=== PATIENT | female | born 1955 | race Caucasian/White ===

== ENCOUNTER 2023-10-17 11:40 | Inpatient (IN) | payer MEDICARE, OTHER, SELFPAY ==
--- NOTE | 2023-10-17 11:53 | HPS.HSE ---
Family Physician
-
Family Physician: Thais Smith
Chief Complaint
-
n/a
History of Present Illness
Beatrice Marx is a 68-year-old hdlob-cpdu-kzizwbqo female with chronic rheumatoid arthritis on methotrexate and in usual state of health, was initially admitted to [facility] on 10/14/2023 for complaint of chest pressure, shortness
of breath and dizzinesswhile driving. She pulled into a [facility] pharmacy and was given 4 baby aspirin's and EMS was notified. She ruled in for non-STEMI at [facility]. TTE reported ejection fraction of 57%. Cardiac cath via right radial
artery on 10/17/2023 reported high-grade LAD and circumflex disease, with 60% RCA stenosis. Patient was transferred to [facility] for surgical evaluation for CABG. Patient is currently pain-free and sitting upright in bed, conversing with
staff.
Cardiac Cath (R radial by Dr Kleber Alvarado @ [facility] 10/17/23):
60% distal left main involving the ostial LAD and LCx.
90% ostial LAD
50% calcific ostial and 80% proximal LCx
60% proximal RCA (dominant)
TTE 10/16/23:
LVEF 55%. Cannot R/O RA mass/thrombus. No , tr AI. Mod MS (mean gradient 3mmHg). Mild TR. Asc Aorta 3.37cm. Aneurysm of intraventricualr septum with PFO.
Medical History
Past Medical History
Past Medical History: Reports Other (Rheumatoid arthritis, HTN, HLD, migraine cephalgia, basal cell cancer of forehead, right shoulder dislocation, obesity)
Past Surgical History: Reports Other (Repair and pinning of right shoulder dislocation, removal of basal cell cancer from forehead)
Social History
Tobacco: Non-smoker
Alcohol: None
Drug: None
Personal:
Living: With Family
Family History
Family History: Adopted
Allergies / Home Medications
Allergies reflects when Allergies were last updated in [facility].
Home Medications with original date entered in [facility]
Allergy/Medication List:
Home Medications
�Medication �Instructions �Recorded
B.coagulans,subtilis 1 billion tab PO 10/17/23
cell-C 45 mg-D3 25 mcg-zinc chew
tablet (Probiotic-Immune)
B6 1.7 mg-folic 400 mcg-B12 2.4 cap PO DAILY 10/17/23
rnt-yhhuvu-anbjnwrmdipi oral
capsule (Neuriva Plus Brain
Performance)
acetaminophen 300 mg-codeine 15 mg 1 tab PO BID PRN pain 10/17/23
tablet
aspirin 81 mg tablet 81 mg PO DAILY 10/17/23
calcium carbonate 600 mg PO BID 10/17/23
cranberry fruit 450 mg tablet 450 mg PO DAILY 10/17/23
(cranberry)
elderberry fruit 200 mg capsule mg PO DAILY 10/17/23
escitalopram oxalate 10 mg PO DAILY 10/17/23
escitalopram oxalate 20 mg tablet 20 mg PO DAILY 10/17/23
fexofenadine 60 mg-pseudoephedrine 1 tab PO Q12H PRN allergy 10/17/23
ER 120 mg tablet,ext.release,12 hr
(Joaquina-D 12 Hour)
furosemide 20 mg tablet (Lasix) 20 mg PO DAILY 10/17/23
golimumab 12.5 mg/mL intravenous 50 mg IV Q8W 10/17/23
solution (Simponi ARIA)
lisinopril 5 mg tablet 5 mg PO DAILY 10/17/23
magnesium aspart,citrate,oxide 400 mg PO DAILY 10/17/23
methotrexate sodium 2.5 mg tablets 2.5 mg PO QWEEK 10/17/23
in a dose pack
montelukast 10 mg tablet 10 mg PO DAILY 10/17/23
(Singulair)
multivitamin 1 tab PO DAILY 10/17/23
nabumetone 500 mg tablet 500 mg PO BID 10/17/23
omega-3 fatty acids 1,000 mg PO DAILY 10/17/23
oxycodone-acetaminophen 5 mg-325 1 tab PO Q6H PRN pain 10/17/23
mg tablet (Percocet)
pravastatin 80 mg tablet 80 mg PO DAILY 10/17/23
topiramate 25 mg tablet 25 mg PO BID 10/17/23
zolpidem 12.5 mg tablet,extended mg PO PRN PRN sleep 10/17/23
release,multiphase
Review of Systems
-
History Source: Patient
A 12 point ROS was completed and negative except as noted: Yes
Constitutional: Reports No Symptoms
EENT: Reports No Symptoms
Respiratory: Reports No Symptoms
Cardiac: Reports See HPI
: Reports No Symptoms
Musculoskeletal: Reports See HPI
Skin: Reports Rash (B/L toes )
Neurological: Reports No Symptoms
Endocrine: Reports No Symptoms
Hematologic/Lymphatic: Reports No Symptoms
Psych: Reports No Symptoms
Physical Exam
Vital Signs
Vital Signs
Temp Pulse Resp Pulse Ox
97.9 F 65 15 97
10/17/23 11:48 10/17/23 11:48 10/17/23 11:48 10/17/23 11:48
Physical Exam
General: Well Developed, Well Nourished, Conversant and Obese
HEENT: NormoCephalic, Anicteric, Moist mucous membranes, PERRLA and Neck Nontender
Respiratory: Clear and Non Labored Respirations
Cardiac: S1/S2 and Regular Rhythm
Breast: Deferred by me
GI: Soft, Non Tender, Normal Bowel Sounds and No Hepatosplenomegaly
Rectal: Deferred by Provider
Genito-urinary: Deferred by me
Musculoskeletal: No Clubbing, No Cyanosis and No Edema
Skin: Warm, Dry and Rash (chronic B/L toes)
Neuro: Awake, AO x 3, No Motor Deficits and Cranial Nerves Intact
Hematologic/Lymphatic: No Lymphadenopathy
Psych: Calm and Intact Judgment/Insight
Laboratory Results
-
A1c 5.7%
Data Reviewed
-
Medical Tests (Nuc Med, Echo, EKG etc): Report Reviewed by me, Discussed with Physician and Discussed with Nurse
Lab Data: Labs Reviewed by me, Discussed with Physician and Discussed with Nurse
Impression/Plan
-
IMPRESSION:
68-year-old female admitted with non-STEMI and left main/triple-vessel coronary disease with preserved ejection fraction, PFO
PLAN:
- Dr. Tinoco reviewed echo and cath images and spoke to patient/family re: CABG risk/benefit
- pre-op blood work, carotid US, non-contrast CT chest, T&S, CXR ordered
- A1C 5.7%>will need carb controlled cholesterol lowering diet
- last dose Methotrexate 10/15
- consent signed
- scheduled for CABG 10/17
--- NOTE | 2023-10-17 12:44 | CON.INTV ---
Consultation
Consultation Request
Date/Time Consultation Requested: 10/17/2023 - 1214
Date/Time Consultation Performed: 10/17/2023 - 1400
Requesting Provider: Bella ALFARO
Performing Provider: Dr. East
Reason for Consultation: NSTEMI, pre-op optimization for CABG
Medical History
-
Chief Complaint: SOB
History of Present Illness:
68-year-old female known tobacco smoker with a wood stove at home who presents with SOB, chest pressure and dizziness while driving. She was at the library and left when her symptoms developed, and went to a [facility] pharmacy that she gets her
medications filled at and notified the staff there her symptoms. Due to concern for a heart attack, 4 baby aspirin's were administered and EMS was notified who brought her to [facility]. Reportedly, echo showed EF of 57%. Cardiac cath done on 10/09/2023
showed high-grade LAD and circumflex disease with RCA disease as well (60%), she was transferred here [facility] for surgical evaluation for CABG. Cardiothoracic surgery was consulted who believes patient would benefit from surgical coronary
revascularization. She is tentatively scheduled for surgery tomorrow. Pulmonary/critical care services consulted for further recommendations/preoperative management.
When I saw the patient she was doing well, sitting in chair on room air breathing comfortably. She says that the shortness of breath she felt prior to going [facility] she had never felt that before. She says she also felt neck pain as well as a
headache. She is a very active female, is independent with all her ADLs and IADLs. She is currently saturating 100% on room air, heart rate 70 and BP 113/78. She denies chest pain currently, denies neck pain, headache, fevers or chills.
PMHx: Rheumatoid arthritis, HTN, HLD, migraine cephalgia, basal cell cancer of forehead, right shoulder dislocation, obesity
PSHx: Repair and pinning of right shoulder dislocation, removal of basal cell cancer from forehead
Past Medical History
Past Medical History: Other (Above as per HPI)
Past Surgical History: Other (Above as per HPI)
Social History
Tobacco: Non-smoker
Alcohol: None
Drug: None
Personal:
Living: With Family
Family History
Family History: Adopted
Allergies / Home Medications
Allergies
Allergy/AdvReac Type Severity Reaction Status Date / Time
sulfamethoxazole Allergy Mild Hives Verified 10/17/23 12:26
[From
Sulfamethoxazole-Trimethoprim]
trimethoprim Allergy Mild Hives Verified 10/17/23 12:26
[From
Sulfamethoxazole-Trimethoprim]
clarithromycin AdvReac Mild diarrhea Verified 10/17/23 12:26
Bactrim Allergy Intermediate Hives Uncoded 10/17/23 12:26
Review of Systems
-
History Source: Patient
All other systems: Negative unless noted
Vitals / Labs / Diagnostic Testing
Vital Signs
Temp Pulse Resp Pulse Ox
97.9 F 62 15 97
10/17/23 11:48 10/17/23 11:56 10/17/23 11:48 10/17/23 12:07
Diagnostic Testing:
Physical Exam
-
HEENT: Normocephalic and Anicteric
Cardiovascular: S1/S2 and Peripheral Edema (Negative)
Respiratory: Clear, Wheeze (Negative), Rales (Negative), Rhonchi (Negative) and Non-Labored Respirations
GI: Soft, Non Distended and Non Tender
Neurology: AO x 3 and Tremors (Negative)
Skin: Warm and Dry
General: Comfortable, Fever (Negative) and Chills (Negative)
Assessment
-
Assessment: 68-year-old female known tobacco smoker with a wood stove at home who presents with SOB, chest pressure and dizziness while driving. She was at the library and left when her symptoms developed, and went to a [facility] pharmacy that she gets
her medications filled at and notified the staff there her symptoms. Due to concern for a heart attack, 4 baby aspirin's were administered and EMS was notified who brought her to [facility]. Reportedly, echo showed EF of 57%. Cardiac cath done on
10/09/2023 showed high-grade LAD and circumflex disease with RCA disease as well (60%), she was transferred here [facility] for surgical evaluation for CABG. Cardiothoracic surgery was consulted who believes patient would benefit from surgical
coronary revascularization. She is tentatively scheduled for surgery tomorrow. Pulmonary/critical care services consulted for further recommendations/preoperative management.
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
Impression:
#Multivessel CAD with acute NSTEMI diagnosed at outside hospital ([facility]) now awaiting CABG
#Wood stove exposure at home
#History of RA
#Obesity (BMI: 36.6)
#Mild medial LLL and RLL bronchiectasis
Plan:
Patient awaiting CABG which will happen tomorrow
Keep n.p.o. past midnight
Maintain MAP >65
Replete K >4, Mg>2
prn nebulized bronchodilators
Monitor hemoglobin & transfuse to keep Hb>7g/dL
Monitor blood sugar with goal BG 140-180
Incentive spirometer encouraged
DVT prophylaxis
Total time spent today was 75 minutes for this encounter. Time includes reviewing laboratory test/imaging results, reviewing pertinent medical records, obtaining and reviewing medical history, performing an appropriate exam, ordering medications,
tests and procedures. Time also includes documentation of this encounter, coordinating patient care and communicating with other healthcare professionals. Total time does not include separately billed tests performed on this date of service.
Data:
CT Chest 10-17-2023:
1. No acute pulmonary process. Mild changes of pulmonary scarring as above with small area of cylindrical bronchiectatic change in the paramediastinal right lower lobe.
2. Coronary and aortic atherosclerosis with severe coronary artery calcification. At least moderate aortic valve calcification.
CXR 10-17-2023: Hypoaerated lungs without consolidation.
[2023-10-17 12:52] LABS: % Basophils 1.6 % (0-2); % Eosinophils 7.8 % (0-6); % Immature Granulocytes 0.2 % (0-0.5); % Lymphocytes 25.3 % (20.5-51.1); % Monocytes 10.9 % (1.7-9.3); % Neutrophils 54.2 % (42.2-75.2); Absolute Basophils 0.1 10^3/uL (0-0.2); Absolute Eosinophils 0.5 10^3/uL (0-0.7); Absolute Lymphocytes 1.5 10^3/uL (1.2-3.4); Absolute Monocytes 0.6 10^3/uL (0.1-0.6); Absolute Neutrophils 3.1 10^3/uL (1.4-6.5); Hematocrit 43.9 % (37.0-47.0); Mean Corp Hgb Conc. 34.2 g/dL (33.0-37.0); Mean Corpuscular Hgb 30.1 pg (27.0-31.0); Nucleated Red Blood Cells % 0 %; Red Blood Cell Count 4.99 10^6/uL (4.20-5.40); Red Cell Dist. Width 15.9 % (11.5-14.5); White Blood Cell Count 5.8 10^3/uL (4.8-10.8)
[2023-10-17 13:04] LABS: INR 1.01; PT 13.1 Sec (11.4-14.6)
[2023-10-17 13:06] LABS: APTT 47.6 Sec (23.4-35.0)
[2023-10-17 13:11] LABS: Glycohemoglobin (HgbA1c) 5.7 % (4.0-5.6)
[2023-10-17 13:39] LABS: Urine Albumin Trace (Neg - Trace); Urine Bilirubin 1+ (Negative); Urine Character Clear (Clear); Urine Color Yellow; Urine Glucose Negative (Negative); Urine Ketone Negative (Negative); Urine Leukocyte Trace (Negative); Urine Nitrite Negative (Negative); Urine Occult Blood Negative (Negative); Urine Specific Gravity 1.015 (<1.030); Urine Urobilinogen Negative (Neg - 1+)
[2023-10-17 13:48] LABS: Urine Bacteria Few (Negative); Urine Red Blood Cell 0-2 /HPF (0-2); Urine Squamous Cell >30 /LPF (Few); Urine White Cell 0-2 /HPF (0-5)
--- NOTE | 2023-10-17 13:58 | CON.CAR ---
Addendum entered and electronically signed by Rufus Shine MD 10/17/23 16:24:
Attending addendum: Patient seen and examined. I have reviewed the compilation of records from [facility] and have personally reviewed coronary angiography performed at [facility]. Briefly, this is a 68-year-old female with a
past medical history notable for rheumatoid, hypertension, and hyperlipidemia. She presented to [facility] with a generalized sense of feeling unwell with shortness of breath and dizziness. Her troponin high-sensitivity was very mildly
elevated and she was referred for coronary angiography revealing multivessel coronary artery disease. She is now received in transfer and is chest pain free
Physical Exam:
GEN: AAO x 3. No acute distress
HEENT: NC/AT, sclera are anicteric, hearing and nares are normal.
LUNGS: Crackles at bases that largely clear with cough and inspiration.
CV: Regular rate and rhythm. Normal S1/S2. No S3, No S4. Murmur: None
ABD : Soft, NT, ND, No HSM. Bowel sounds are present.
EXT: No CCE. Good distal pulses
NEURO: No focal neurologic deficits
RECOMMENDATIONS:
-IV heparin
-CT surgical evaluation
-Continue aspirin
-Limited percutaneous treatment options.
-Consider IABP if she becomes unstable with recurring symptoms
Original Note:
Consultation
Consultation Request
Date/Time Consultation Requested: 10/17/23
Date/Time Consultation Performed: 10/17/23
Requesting Provider: CT surgery service
Performing Provider: Dr. Shine
Reason for Consultation: Hospital to hospital transfer fro multivessel CAD
Medical History
-
History of Present Illness:
Patient came to from [facility] with multivessel CAD on 10/17/23 and cardiology has been consulted. Patient started with chest pain when she was at the library on Monday when she started with chest pressure. Chest pressure was worse while driving home
and she started to feel SOB and dizzy. She called 911 and was brought to [facility] ER. In [facility] ER patient was hypertensive. Patient was admitted and started on Heparin gtt. Patient was treated for HTN throughout the weekend and then had cardiac cath this
morning at [facility] where she was found to have multivessel CAD and was transferred to for CT surgical evaluation. No chest pain since admission to [facility].
PMH:
RA
HTN
Hyperlipidemia
Past Medical History
Past Medical History: Other (in HPI)
Past Surgical History: Cardiac (cath 10/17/23)
Social History
Tobacco: Non-Smoker
Alcohol: None
Drug: None
Personal:
Living: With Family
Family History
Family History: Diabetes
Allergies / Home Medications
Allergy/AdvReac Type Severity Reaction Status Date / Time
sulfamethoxazole Allergy Mild Hives Verified 10/17/23 12:26
[From
Sulfamethoxazole-Trimethoprim]
trimethoprim Allergy Mild Hives Verified 10/17/23 12:26
[From
Sulfamethoxazole-Trimethoprim]
clarithromycin AdvReac Mild diarrhea Verified 10/17/23 12:26
�Medication �Instructions �Recorded �Confirmed �Type
B.coagulans,subtilis 1 billion tab PO 10/17/23 History
cell-C 45 mg-D3 25 mcg-zinc chew
tablet (Probiotic-Immune)
B6 1.7 mg-folic 400 mcg-B12 2.4 cap PO DAILY 10/17/23 History
uwr-kndzqa-tbhauvkvhmbo oral
capsule (Neuriva Plus Brain
Performance)
acetaminophen 300 mg-codeine 15 mg 1 tab PO BID PRN pain 10/17/23 10/17/23 History
tablet
aspirin 81 mg tablet 81 mg PO DAILY 10/17/23 10/17/23 History
calcium carbonate 600 mg PO BID 10/17/23 10/17/23 History
cranberry fruit 450 mg tablet 450 mg PO DAILY 10/17/23 10/17/23 History
(cranberry)
elderberry fruit 200 mg capsule mg PO DAILY 10/17/23 History
escitalopram oxalate 10 mg PO DAILY 10/17/23 10/17/23 History
escitalopram oxalate 20 mg tablet 20 mg PO DAILY 10/17/23 10/17/23 History
fexofenadine 60 mg-pseudoephedrine 1 tab PO Q12H PRN allergy 10/17/23 10/17/23 History
ER 120 mg tablet,ext.release,12 hr
(Joaquina-D 12 Hour)
furosemide 20 mg tablet (Lasix) 20 mg PO DAILY 10/17/23 10/17/23 History
golimumab 12.5 mg/mL intravenous 50 mg IV Q8W 10/17/23 10/17/23 History
solution (Simponi ARIA)
lisinopril 5 mg tablet 5 mg PO DAILY 10/17/23 10/17/23 History
magnesium aspart,citrate,oxide 400 mg PO DAILY 10/17/23 10/17/23 History
methotrexate sodium 2.5 mg tablets 2.5 mg PO QWEEK 10/17/23 10/17/23 History
in a dose pack
montelukast 10 mg tablet 10 mg PO DAILY 10/17/23 10/17/23 History
(Singulair)
multivitamin 1 tab PO DAILY 10/17/23 10/17/23 History
nabumetone 500 mg tablet 500 mg PO BID 10/17/23 10/17/23 History
omega-3 fatty acids 1,000 mg PO DAILY 10/17/23 10/17/23 History
oxycodone-acetaminophen 5 mg-325 1 tab PO Q6H PRN pain 10/17/23 10/17/23 History
mg tablet (Percocet)
pravastatin 80 mg tablet 80 mg PO DAILY 10/17/23 10/17/23 History
topiramate 25 mg tablet 25 mg PO BID 10/17/23 10/17/23 History
zolpidem 12.5 mg tablet,extended mg PO PRN PRN sleep 10/17/23 History
release,multiphase
Review of Systems
-
History Source: Patient
All other systems: Negative unless noted
Physical Exam
Vital Signs
Temp Pulse Resp Pulse Ox
97.9 F 70 15 97
10/17/23 11:48 10/17/23 13:52 10/17/23 11:48 10/17/23 13:55
GEN: NAD. AAOx3
HEENT: EOMI, MMM
LUNGS: CTA B/L, no wheezes/rales
CV: Reg, S1/S2, no murmur
ABD: soft, BS+, NT, ND
EXT: Right radial access site without hematoma or ecchymosis. No clubbing, cyanosis, lesions or edema B/L
NEURO: Gross non-focal
SKIN: Warm, dry and pink. No rash
Lab Results
10/17/23 12:42
Impression / Plan
-
PCP: Dr. Thais Smith
Cardiology: ATC
Impression:
Multivessel CAD by cath at [facility] 10/17/23
Transferred from [facility] to for CT surgery eval 10/17/23
Admitted to [facility] with chest pain 10/14/23
RA
HTN
Hyperlipidemia
Cardiac cath 10/09/2023: [facility] study, obstructive/critical disease in the circumflex, ostial LAD with significant left main involvement
Echo 10/17/23: [facility] study, EF 55%, normal RV size and function, no evidence of AAS, moderate MS with mean gradient 3 mmHg, interatrial septal aneurysm with evidence of PFO by color-flow Doppler
Plan:
-Patient came to from [facility] with multivessel CAD on 10/17/23 and cardiology has been consulted. Patient started with chest pain when she was at the library on Monday when she started with chest pressure. Chest pressure was worse while driving home
and she started to feel SOB and dizzy. She called 911 and was brought to [facility] ER. In [facility] ER patient was hypertensive. Patient was admitted and started on Heparin gtt. Patient was treated for HTN throughout the weekend and then had cardiac cath this
morning at [facility] where she was found to have multivessel CAD and was transferred to for CT surgical evaluation. No chest pain since admission to [facility].
-Await additional records from [facility], but for now patient is pain free.
-Await echo images, if they do not arrive in a timely fashion then will repeat echo.
-Patient was HTN throughout admission to [facility] and was ordered Coreg 6.25 mg BID and valsartan 80 mg daily. Outpatient dose of lisinopril was stopped during [facility] admission. HUGH/ARB is on hold in anticipation of CABG.
-Eventually continue aspirin 81 mg daily
-No clear evidence of HI at [facility] so no indication for DAPT from that perspective.
--- NOTE | 2023-10-17 14:10 | W.PN.UPDATE ---
Update Note
Progress Note Update
CARDIAC SURGERY ATTENDING:
Full Consult/H&P to Follow
It was my pleasure to evaluate Mrs. Beatrice Marx at her bedside today. Her and son were present during our discussions. Briefly she is a very pleasant 68-year-old woman who presented to [facility] with a small, non-ST elevation myocardial
infarction. Cardiac catheterization demonstrated very significant ostial LAD and left circumflex disease with moderate disease in her proximal RCA. She was transferred to the for surgical evaluation/treatment.
I believe she will benefit from surgical coronary revascularization. I had a greater than 45-minute discussion with Mrs. Marx and her family. We reviewed her pathology, the proposed operative interventions, the associated periprocedural risks
(including, but not limited to, , stroke, HI, arrhythmia, pneumonia, ANDERS/F, bleeding, and infection), the expected in-hospital postprocedural course, and expected outpatient recovery. All questions were answered to the best of my abilities.
The patient is agreeable to proceed.
I have tentatively scheduled her for surgery for tomorrow 10/18/2023 as a second case. I anticipate GUNTER to the LAD, greater saphenous vein to OM, and potential greater saphenous vein to RCA pending further multidisciplinary discussion with my
cardiology colleagues. Is quite possible that the extent of proximal disease present in the RCA is not of significant enough nature to allow for sustained graft patency should this artery be bypassed.
Thank you for the opportunity to participate in the care of this kind patient.
Please call with any questions or concerns.
Raza Tinoco MD
[phone]
--- NOTE | 2023-10-17 14:16 | PTCARENOTE ---
Patient received as transfer from [facility]. NSR via cm. B/L PIV present, patent. R radial band in place, distal SaO2 97% on RA. Patient ambulated to bed w/assist personal cane. Family to bedside. Dr. Tinoco to room, case discussed w/patient and spouse.
Patient added to surgical schedule in am, updated to plan of care. See work list for full assessment and interventions performed.
[2023-10-17 14:27] VITALS: BMI 36.6
[2023-10-17 14:29] LABS: ALT (SGPT) 53 U/L (0-35); AST (SGOT) 65 U/L (14-36); Albumin 4.4 g/dl (3.5-5.0); Alkaline Phosphatase 65 U/L (38-126); Blood Urea Nitrogen 17 mg/dl (7-17); Calcium 9.2 mg/dl (8.4-10.2); Carbon Dioxide 27 mmol/L (22-30); Chloride 107 mmol/L (98-107); Estimated Creatinine Clearance 91 ml/min; Glucose 113 mg/dl (70-99); Magnesium 2.3 mg/dl (1.6-2.3); Phosphorus 4.1 mg/dl (2.5-4.5); Sodium 141 mmol/L (135-145); Total Bilirubin 0.5 mg/dl (0.2-1.3); Total Protein 7.2 g/dl (6.3-8.2); eGFR > 60.00
--- NOTE | 2023-10-17 14:37 | W.PN.UPDATE ---
Update Note
Progress Note Update
STS RISK SCORE
Procedure Type:�Isolated CABG
PERIOPERATIVE OUTCOME ESTIMATE %
Operative Mortality 2.08%
Morbidity & Mortality 7.19%
Stroke 1.17%
Renal Failure 1.06%
Reoperation 1.85%
Prolonged Ventilation 4.1%
Deep Sternal Wound Infection 0.384%
Long Hospital Stay (>14 days) 4.48%
Short Hospital Stay (<6 days)* 44.9%
Clinical Summary
Planned Surgery: Isolated CABG, Urgent, First cardiovascular surgery
Demographics: 68 year old, White, female, 89kg, 156cm, BMI: 36.6 kg/m�
Lab Values: Creatinine: 0.6 mg/dL, Hematocrit: 43.9%, WBC Count: 5.8 10�/�L, Platelet Count: 856835 cells/�L
Substance Abuse: Never smoker
Risk Factors / Comorbidities: Hypertension, Immunocompromised
Cardiac Status: NYHA Class II, Ejection Fraction = 57%
Coronary Artery Disease: 3 vessels diseased, Left Main Stenosis >=50%, Proximal LAD Stenosis >=70%, Non-ST Elevation IL, IL: 1 to 7 Days
Valve Disease: Trivial/Trace AR, Mitral Stenosis, Trivial/Trace TR
[2023-10-17 14:59] LABS: Potassium 4.4 mmol/L (3.5-5.1)
[2023-10-17 15:38] VITALS: BP 113/78
[2023-10-17] MEDS: HEPARIN 25000 UNITS/250 ML IV (15:41)
--- NOTE | 2023-10-17 15:47 | PTCARENOTE ---
VS obtained, assessment stable. Patient completed testing, back in room. Heparin gtt initiated.
--- NOTE | 2023-10-17 16:52 | CM ---
spoke to pt in room, she is prev indep, lives with her husb and son in a 2 story home with 1 step to enter. she uses a cane. we discussed preop CABG teaching including sternal and driving restrictions. 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 she is
agreeable to a f/u visit from the ct transitional care nurses after dc. plan is for CABG in am, cm role explained and all questions answered.
[2023-10-17] MEDS: PRAVACHOL 80 MG PO (17:15)
[2023-10-17] MEDS: SINGULAIR 10 MG PO (17:15)
[2023-10-17 21:01] VITALS: BP 109/84
--- NOTE | 2023-10-17 21:30 | PTCARENOTE ---
Pt received from buffy RN. Pt AAOx3. SR on the monitor. HR 80s. BP stable. Trace pedal edema. Palpable pulses throughout. Pt on RA. POX 96%. Lung sounds diminished. IS encouraged. Abdomen soft/nontender. Pt voiding in the bathroom. +BS. Pt 1
person assist OOB and uses a single point cane. Pt given CHG shower #1 in preparation for CVOR in AM. Heparin infusing as ordered. Denies pain at this time. Call meneses within reach. See worklist for full nursing assessment and interventions.
[2023-10-17] MEDS: TOPAMAX 50 MG PO (21:52)
[2023-10-17] MEDS: TYLENOL 650 MG PO (23:11)
[2023-10-17 23:13] VITALS: BP 131/87
[2023-10-18] VITALS (7 sets, daily range): BP systolic 85–135; BP diastolic 53–85; BMI 36.6
--- NOTE | 2023-10-18 00:01 | PTCARENOTE ---
Previous assessment unchanged. Pt SR on the monitor. HR 70s. BP stable. RA. Pt heparin increased based on PTT assessment - see worklist. Pt c/o headache - see JUL. Pt resting in bed at this time. Call meneses within reach.
[2023-10-18 05:17] LABS: ALT (SGPT) 56 U/L (0-35); AST (SGOT) 57 U/L (14-36); Alkaline Phosphatase 65 U/L (38-126); Direct Bilirubin 0.2 mg/dl (0.0-0.4); Total Bilirubin 0.4 mg/dl (0.2-1.3); Total Protein 6.7 g/dl (6.3-8.2)
--- NOTE | 2023-10-18 05:30 | PTCARENOTE ---
Previous assessment unchanged. SR on the monitor. HR 80s. BP stable. RA. POX 100%. Pt given second CHG soap shower. Gown and linens changed. Weight obtained. Labs drawn and sent. Heparin increased based on PTT result - see JUL. Pt denies pain at
this time. Pt NPO since midnight. Call meneses within reach.
--- NOTE | 2023-10-18 06:23 | PTCARENOTE ---
Instructed not to administer preop medications @0600 by CTPA since pt is second case this AM.
[2023-10-18] MEDS: ANCEF 10 IV (07:00)
--- NOTE | 2023-10-18 08:00 | PTCARENOTE ---
pt received from previous RN, oriented, in bed resting. SR on the monitor, HR 60-70s. SBP 120s. trace LE edema. feet red from RA per pt. pt on RA, 95% POX. lungs diminished. pt abdomen s/n, +BS. NPO. +stress incontinence. uses cane to ambulate. R
wrist site c/d/i. PIV x2. heparin gtt running as ordered. at bedside. denies CP. see workllist for VS, I&O, and assessment.
--- NOTE | 2023-10-18 09:27 | W.PN.INTV ---
Today's Communication / Plan
Recommendations
for OR today
Will try to see after case is done, otherwise will see again tomorrow
Extubation post-procedure as she awakens and per protocol
BG 140-180
SpO2 goal >94%
Assessment
-
Assessment: 68-year-old female known tobacco smoker with a wood stove at home who presents with SOB, chest pressure and dizziness while driving. She was at the library and left when her symptoms developed, and went to a [facility] pharmacy that she gets
her medications filled at and notified the staff there her symptoms. Due to concern for a heart attack, 4 baby aspirin's were administered and EMS was notified who brought her to [facility]. Reportedly, echo showed EF of 57%. Cardiac cath done on
10/09/2023 showed high-grade LAD and circumflex disease with RCA disease as well (60%), she was transferred here [place] for surgical evaluation for CABG. Cardiothoracic surgery was consulted who believes patient would benefit from surgical
coronary revascularization. She is tentatively scheduled for surgery tomorrow. Pulmonary/critical care services consulted for further recommendations/preoperative management.
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
Impression:
#Multivessel CAD with acute NSTEMI diagnosed at outside hospital ([facility]) now awaiting CABG - to be done today
#Wood stove exposure at home
#History of RA
#Obesity (BMI: 36.6)
#Mild medial LLL and RLL bronchiectasis
Plan:
Patient awaiting CABG which will happen today
Keep NPO
Maintain MAP >65
Replete K >4, Mg>2
prn nebulized bronchodilators
Monitor hemoglobin & transfuse to keep Hb>7g/dL
Monitor blood sugar with goal BG 140-180
Incentive spirometer encouraged
DVT prophylaxis
Total time spent today was 35 minutes for this encounter. Time includes reviewing laboratory test/imaging results, reviewing pertinent medical records, obtaining and reviewing medical history, performing an appropriate exam, ordering medications,
tests and procedures. Time also includes documentation of this encounter, coordinating patient care and communicating with other healthcare professionals. Total time does not include separately billed tests performed on this date of service.
Data:
CT Chest 10-17-2023:
1. No acute pulmonary process. Mild changes of pulmonary scarring as above with small area of cylindrical bronchiectatic change in the paramediastinal right lower lobe.
2. Coronary and aortic atherosclerosis with severe coronary artery calcification. At least moderate aortic valve calcification.
CXR 10-17-2023: Hypoaerated lungs without consolidation.
Subjective Dataa
Subjective Data
Date of Service:
Date of Service: October 18, 2023
Chief Complaint: Dermatologist And Dermatopathologist Follow Up and Pulmonary Follow Up
Subjective:
Going to OR today. Saturating 97% on room air. No acute events reported from overnight.
Review of Systems
General: Other (Negative unless mentioned above)
Objective Data
Data Reviewed
Vital Signs / I&O / Oxygen:
Vital Signs
Temp Pulse Resp BP Pulse Ox
97.3 F 74 18 129/55 95
10/18/23 08:00 10/18/23 08:32 10/18/23 08:00 10/18/23 08:32 10/18/23 08:30
Intake and Output
10/17/23 10/18/23 10/19/23
06:59 06:59 06:59
Intake Total 582 / 582 13 /
Output Total 975 / 975 300 / 300
Balance -393 / -393 -287 / -287
SaO2 95
Physical Exam
General: Respiratory Distress (negative) and Comfortable
HEENT: Normocephalic and Anicteric
Cardiovascular: S1-S2 and Peripheral Edema (negative)
Respiratory: Clear, Wheeze (negative), Crackles (negative) and Non-Labored Respirations
GI: Soft, Non Distended and Non Tender
Neurology: AO x 3 and Tremors (negative)
Skin: Warm and Dry
Labs/Micro/Reports
Lab Data
10/17/23 15:14
10/17/23 13:56
Laboratory Results
10/17/23 10/17/23 10/17/23
12:42 15:14 22:01
PT 13.1
INR 1.01
APTT 47.6 H Cancelled 34.0
10/18/23
04:39
PT
INR
APTT 70.0 H
--- NOTE | 2023-10-18 10:33 | CM ---
CM following for DC planning needs.
Patient in OR today for planned CT Surgery.
Reviewed initial assessment. Pt. resides in a 2 story home w/ 1 PASCUAL w/ spouse.
Functionally, patient indep. at baseline w/ use of a SPC.
Anticipate DC to home w/ CT Transitional Care RN.
CM to follow.
[2023-10-18 11:33] LABS: APTT 88.6 Sec (23.4-35.0)
[2023-10-18] MEDS: PROTONIX 40 MG PO (13:07)
[2023-10-18] MEDS: LOPRESSOR 25 MG PO (13:07)
[2023-10-18] MEDS: BACTROBAN 2% OINTMENT 1 APPLIC NASAL ×2 (13:08→20:37)
[2023-10-18] MEDS: MAGNESIUM OXIDE 500 MG PO (13:08)
--- NOTE | 2023-10-18 13:30 | PTCARENOTE ---
pt pre op meds given, pt transferred to CVOR via bed.
[2023-10-18 14:24] LABS: Urine Albumin Negative (Neg - Trace); Urine Bilirubin 1+ (Negative); Urine Character Clear (Clear); Urine Color Yellow; Urine Glucose Negative (Negative); Urine Ketone 3+ (Negative); Urine Leukocyte Trace (Negative); Urine Nitrite Negative (Negative); Urine Occult Blood Negative (Negative); Urine Specific Gravity 1.025 (<1.030); Urine Urobilinogen Negative (Neg - 1+)
[2023-10-18 14:46] LABS: ACT+ - POC 118 Seconds (82-134)
[2023-10-18 14:49] LABS: B.E. - POC -3.5 mmol/L; Glucose - POC 117 mg/dl (65-99); HCO3 - POC 21 mmol/L (21-29); Hematocrit - POC 40 % PCV (37-47); Hemodilution- POC No; Hemoglobin Calculated - POC 13.7; O2 Saturation %Calculated-POC 98.8 5 (92-96); PCO2 - POC 33 mmHg (35-45); PO2 - POC 124 mmHg (80-100); Potassium - POC 3.3 mmol/L (3.6-5.0); Sodium - POC 142 mmol/L (135-145)
[2023-10-18 15:06] LABS: Urine Squamous Cell 16-20 /LPF (Few)
[2023-10-18 15:07] LABS: Urine Red Blood Cell 0-2 /HPF (0-2)
[2023-10-18 15:08] LABS: Urine Bacteria Few (Negative)
[2023-10-18 16:21] LABS: ACT+ - POC 568 Seconds (82-134)
[2023-10-18 16:53] LABS: B.E. - POC 0.3 mmol/L; Glucose - POC 148 mg/dl (65-99); HCO3 - POC 24 mmol/L (21-29); Hematocrit - POC 25 % PCV (37-47); Hemodilution- POC Yes; Hemoglobin Calculated - POC 8.4; Ionized Calcium - POC 0.93 mmol/L (1.12-1.27); PCO2 - POC 35 mmHg (35-45); PO2 - POC 418 mmHg (80-100); Potassium - POC 4.7 mmol/L (3.6-5.0); Sodium - POC 141 mmol/L (135-145); pH - POC 7.45 (7.35-7.45)
[2023-10-18 16:53] LABS: ACT+ - POC 505 Seconds (82-134)
[2023-10-18 17:22] LABS: B.E. - POC -1.4 mmol/L; Glucose - POC 211 mg/dl (65-99); HCO3 - POC 23 mmol/L (21-29); Hematocrit - POC 31 % PCV (37-47); Hemodilution- POC Yes; Hemoglobin Calculated - POC 10.4; Ionized Calcium - POC 1.03 mmol/L (1.12-1.27); O2 Saturation %Calculated-POC 96.7 5 (92-96); PCO2 - POC 37 mmHg (35-45); PO2 - POC 87 mmHg (80-100); Potassium - POC 4.8 mmol/L (3.6-5.0); Sodium - POC 142 mmol/L (135-145)
[2023-10-18 17:26] LABS: ACT+ - POC 505 Seconds (82-134)
[2023-10-18] MEDS: ANCEF 15 MG IV ×2 (17:35→19:35)
[2023-10-18 17:43] LABS: B.E. - POC -2.2 mmol/L; Glucose - POC 184 mg/dl (65-99); HCO3 - POC 21 mmol/L (21-29); Hematocrit - POC 33 % PCV (37-47); Hemodilution- POC Yes; Hemoglobin Calculated - POC 11.1; Ionized Calcium - POC 1.02 mmol/L (1.12-1.27); PCO2 - POC 32 mmHg (35-45); PO2 - POC 445 mmHg (80-100); Potassium - POC 4.2 mmol/L (3.6-5.0); Sodium - POC 144 mmol/L (135-145); pH - POC 7.44 (7.35-7.45)
[2023-10-18 17:44] LABS: ACT+ - POC 473 Seconds (82-134)
[2023-10-18 18:03] LABS: ACT+ - POC 104 Seconds (82-134); B.E. - POC -7.9 mmol/L; Glucose - POC 130 mg/dl (65-99); HCO3 - POC 17 mmol/L (21-29); Hematocrit - POC 26 % PCV (37-47); Hemodilution- POC Yes; Hemoglobin Calculated - POC 8.8; Ionized Calcium - POC 1.23 mmol/L (1.12-1.27); O2 Saturation %Calculated-POC 99.9 5 (92-96); PCO2 - POC 31 mmHg (35-45); PO2 - POC 269 mmHg (80-100); Potassium - POC 2.8 mmol/L (3.6-5.0); Sodium - POC 145 mmol/L (135-145); pH - POC 7.35 (7.35-7.45)
[2023-10-18 18:08] LABS: B.E. - POC -7.6 mmol/L; Glucose - POC 132 mg/dl (65-99); HCO3 - POC 17 mmol/L (21-29); Hematocrit - POC 27 % PCV (37-47); Hemodilution- POC Yes; Hemoglobin Calculated - POC 9.2; Ionized Calcium - POC 1.19 mmol/L (1.12-1.27); O2 Saturation %Calculated-POC 99.8 5 (92-96); PCO2 - POC 30 mmHg (35-45); PO2 - POC 245 mmHg (80-100); Potassium - POC 2.7 mmol/L (3.6-5.0); Sodium - POC 148 mmol/L (135-145); pH - POC 7.36 (7.35-7.45)
[2023-10-18 18:15] LABS: B.E. - POC -3.7 mmol/L; Glucose - POC 145 mg/dl (65-99); HCO3 - POC 22 mmol/L (21-29); Hematocrit - POC 32 % PCV (37-47); Hemodilution- POC Yes; Ionized Calcium - POC 1.31 mmol/L (1.12-1.27); O2 Saturation %Calculated-POC 99.9 5 (92-96); PCO2 - POC 40 mmHg (35-45); PO2 - POC 308 mmHg (80-100); Potassium - POC 3.6 mmol/L (3.6-5.0); Sodium - POC 144 mmol/L (135-145); pH - POC 7.35 (7.35-7.45)
--- NOTE | 2023-10-18 18:23 | W.CVOR.SURPR ---
CVOR Surgeon Immed Pre Op
-
I have examined this patient prior to performance of the scheduled procedure.
The patient's condition is unchanged from the time of the dictated/written History and
Physical and the patient is able to undergo the scheduled procedure.
--- NOTE | 2023-10-18 18:23 | W.IMMPOSTOP ---
Addendum entered and electronically signed by Raza Tinoco MD 10/18/23 18:57:
[id number]
Original Note:
Surgical Immed Post Op Note
-
CARDIAC SURGERY OPERATIVE NOTE:
Preoperative Dx:
MVCAD including ostial LAD
NSTEMI
Postoperative Dx:
Same
Procedures:
1) Median sternotomy
2) Takedown of TIFFANIE (narrow pedicle)
3) Endoscopic harvest/prep of RLE GSV
4) CABG x 2 (TIFFANIE to LAD, GSV to OM)
Surgeon:
Raza Tinoco M.D.
Assistants:
Sandro Thao PJose AntonioA.-CJose Antonio; optometrist assistant throughout, closure
Candis EngelA.-CJose Antonio; endoscopic harvest/prep of RLE GSV
Anesthesia:
Navarro Jimenez M.D. and Alma LopezR.N.A.
Perfusion:
Sagar FormanPJose Antonio; XC:52min, CPB: 66min
Findings:
TIFFANIE was healthy vessel w/ ELD 2.5mm, very brisk blood flow
GSV was healthy conduit w/ ELD 3.5mm
OM was visible on epicardial surface, moderate scattered calcifications, ELD 3.0mm
LAD was visible on epicardial surface, dense scattered calcifications, ELD 1.65mm at midpoint anastomosis
Post-LOUISA: LVEF 65-70% no RWMA, normal valves, mild TR
Implants:
CT x 4 (B/L pleural, inferior mediastinal, superior mediastinal)
Sternal wires x 9
Complications:
None
Transfusions:
None
Condition:
58 sinus w/ isoelectric STs. 106/66. CVP 19. 98%
GTTS: levophed 4, precedex 0.5, insulin 1
Stable/guarded to CVICU
[2023-10-18] MEDS: LEXAPRO PO (18:30)
[2023-10-18] MEDS: PRAVACHOL PO (18:31)
[2023-10-18] MEDS: TYLENOL PO ×2 (18:31→22:24)
[2023-10-18] MEDS: SINGULAIR PO (18:31)
[2023-10-18] MEDS: NOVOLOG FLEXPEN SC (18:31)
[2023-10-18] MEDS: NEURONTIN PO ×2 (18:31→22:24)
[2023-10-18] MEDS: PACERONE PO ×2 (18:31→23:24)
[2023-10-18 19:12] LABS: Glucose - Point of Care 123 mg/dl (70-99)
[2023-10-18 19:15] LABS: B.E. -4.5 mmol/L; HCO3 21.1 mmol/L (21-28); Ionized Calcium 1.21 mMOL/L (1.15-1.33); PCO2 40 mmHg (32-35); PO2 206 mmHg (83-108); Potassium 3.7 mMOL/L (3.5-5.1); Sodium 139 mMOL/L (136-145); pH 7.33 (7.35-7.45)
--- NOTE | 2023-10-18 19:15 | PTCARENOTE ---
received pt from CVOR into CVICU room 2261. pt intubated, sedated on precedex. ETT 8.0, 20 cm at the lip. Vent settings SIMV 12/500/5/5/60%. R IJ cordis w/ SLIC. levo, precedex, insunlin infusing. CT x4 (mediastinal x2, R & L pleural) to -20 cm wall
suction, draining sanguineous drainage. no air leaks noted. hansno catheter in place, draining clear, yellow urine. sinus yuko on tele-monitor, HR 50s. no temp epicardial wires. see worklist for complete nursing assessment, interventions, VS, and
I&Os.
[2023-10-18 19:25] LABS: Hematocrit 33.4 % (37.0-47.0); Platelet Count 143 10^3/uL (130-400)
[2023-10-18 19:27] LABS: Hemoglobin 11.7 g/dL (12.0-16.0)
[2023-10-18 19:30] LABS: Blood Urea Nitrogen 17 mg/dl (7-17); Estimated Creatinine Clearance 91 ml/min; Glucose 121 mg/dl (70-99); INR 1.46; Magnesium 3.3 mg/dl (1.6-2.3); PT 17.6 Sec (11.4-14.6)
[2023-10-18 19:31] LABS: APTT 29.5 Sec (23.4-35.0)
[2023-10-18] MEDS: KCL 50 IV ×2 (19:34→20:36)
[2023-10-18] MEDS: NSS 500 IV (19:35)
[2023-10-18 20:00] LABS: Glucose - Point of Care 126 mg/dl (70-99)
[2023-10-18] MEDS: SENOKOT-S PO (20:36)
[2023-10-18] MEDS: TOPAMAX PO (20:55)
[2023-10-18 21:00] LABS: Glucose - Point of Care 113 mg/dl (70-99)
[2023-10-18 22:02] LABS: Glucose - Point of Care 93 mg/dl (70-99)
[2023-10-18] MEDS: OFIRMEV 100 IV (22:19)
[2023-10-18 22:52] LABS: Glucose - Point of Care 111 mg/dl (70-99)
[2023-10-18 22:54] LABS: B.E. -3.4 mmol/L; HCO3 21.4 mmol/L (21-28); Ionized Calcium 1.13 mMOL/L (1.15-1.33); PCO2 37 mmHg (32-35); PO2 191 mmHg (83-108); Potassium 4.8 mMOL/L (3.5-5.1); pH 7.37 (7.35-7.45)
[2023-10-18 22:57] LABS: Hematocrit 34.3 % (37.0-47.0); Hemoglobin 12.2 g/dL (12.0-16.0); Platelet Count 210 10^3/uL (130-400)
--- NOTE | 2023-10-18 23:00 | PTCARENOTE ---
pt extubated at 2300 to 6 L NC. POX 99%. SR to sinus yuko on tele-monitor. levo and insulin infusing. CT drainage WNL. U/O >0.5ml/kg/hr.
[2023-10-18] MEDS: LOW STRENGTH ASPIRIN 81 MG PO (23:47)
[2023-10-18] MEDS: CALCIUM CHLORIDE 10% SYRINGE 50 MG IV (23:47)
[2023-10-18] MEDS: CALCIUM CHLORIDE 10% SYRINGE 50 ML IV (23:47)
[2023-10-18] MEDS: ANCEF 5 IV (23:50)
[2023-10-18 23:56] LABS: Glucose - Point of Care 117 mg/dl (70-99)
[2023-10-19] VITALS (15 sets, daily range): BP systolic 80–141; BP diastolic 57–97; PULSE 76; O2SAT 94–97; BMI 37.0
[2023-10-19] MEDS: ROXICODONE 5 MG PO ×2 (01:11→12:48)
[2023-10-19 01:59] LABS: Glucose - Point of Care 92 mg/dl (70-99)
--- NOTE | 2023-10-19 02:05 | W.PN.CT ---
Today's Communication / Plan
-
- POD #1
- Doing well. No major events overnight. Extubated at 2300 hrs to NC
- Tele review: Sinus yuko resolved, now NSR, occasional PVC
- Gtt's: Levophed off, Precedex off, insulin gtt @ 2 U
- CI: CO: no PA cath, CVP 6-8, BP 122/63, HR 72
- CT 2M 110, L/R PL 80 in 12 hrs
- UOP 800 cc in 12 hrs
- No PW
- wean down/off O2, IS use reinforced
- Continue current meds: ASA, Amio, Mag Ox, Protonix, lopressor 12.5, pravastatin
- continue outpatient meds: Lexapro, Singulair
- Bowel regimen
- OOB, ambulate as tolerated
Assessment / Plan
-
NSTEMI s/p CABG x2 (TIFFANIE to LAD, GSV to OM) by Dr. Tinoco 10/18/23 POD #1
post op LOUISA: LVEF 65-70%, no RWMA, normal valves, mild TR
-MVCAD: 60% distal left main involving the ostial LAD and LCx. 90% ostial LAD 50% calcific ostial and 80% proximal LCx 60% proximal RCA (dominant)
-Aneurysm of intraventricular septum with PFO
-Rheumatoid arthritis
-HLD
-HTN
-migraine
-basal cell cancer of forehead
-obesity
-tobacco abuse
-Acute blood loss anemia
-Post op pain
-Sinus bradycardia
-Prolonged QTc
Subjective
Procedure
s/p CABG x2 (TIFFANIE to LAD, GSV to OM)a with Dr. Tinoco on 10/18/23
-
Date of Service: October 19, 2023
doing well. extubated at 2300 hrs without incident.
Objective Data
-
PT 17.6 Sec (11.4-14.6) H 10/18/23 19:09
INR 1.46 10/18/23 19:09
APTT 29.5 Sec (23.4-35.0) 10/18/23 19:09
Vital Signs
Vital Signs
Temp Pulse Resp BP Pulse Ox
98.7 F 66 18 126/77 97
10/19/23 01:00 10/19/23 01:15 10/19/23 01:00 10/19/23 01:15 10/19/23 01:15
CT Intake/Output/Weight
10/18/23 10/18/23 10/19/23
06:59 18:59 06:59
Intake Total 102 / 582 78 / 351.4 273.4 / 351.4
Output Total 650 / 975 300 / 995 695 / 995
Balance -548 / -393 -222 / -643.6 -421.6 / -643.6
SaO2: 97
Physical Exam
-
General: Awake, Oriented and AOx3
Cardiovascular: Regular rate & rhythm, No Murmurs and No Rub
Respiratory: Clear and Decreased Breath Sounds
Sternum: Stable
Incision: Clean, Dry and Intact
Extremities: Edema +1
Data Reviewed
-
Lab Results: Results Reviewed
Medications: Active Meds Reviewed
Chest X-Ray: Report Reviewed
ECG: Report Reviewed
[2023-10-19] MEDS: TYLENOL 650 MG PO ×2 (03:43→19:37)
[2023-10-19] MEDS: FLEXERIL 5 MG PO (03:43)
[2023-10-19 03:54] LABS: Glucose - Point of Care 106 mg/dl (70-99)
[2023-10-19 04:02] LABS: Hematocrit 35.4 % (37.0-47.0); Hemoglobin 12.3 g/dL (12.0-16.0); Mean Corp Hgb Conc. 34.7 g/dL (33.0-37.0); Mean Corpuscular Hgb 30.4 pg (27.0-31.0); Mean Corpuscular Volume 87.4 fL (81.0-99.0); Mean Platelet Volume 9.9 fL (7.4-10.4); Platelet Count 175 10^3/uL (130-400); Red Blood Cell Count 4.05 10^6/uL (4.20-5.40); Red Cell Dist. Width 15.7 % (11.5-14.5); White Blood Cell Count 12.8 10^3/uL (4.8-10.8)
[2023-10-19 04:27] LABS: Blood Urea Nitrogen 18 mg/dl (7-17); Calcium 8.9 mg/dl (8.4-10.2); Carbon Dioxide 22 mmol/L (22-30); Chloride 114 mmol/L (98-107); Estimated Creatinine Clearance 91 ml/min; Glucose 115 mg/dl (70-99); Magnesium 2.6 mg/dl (1.6-2.3); Potassium 4.3 mmol/L (3.5-5.1); Sodium 143 mmol/L (135-145); eGFR > 60.00
--- NOTE | 2023-10-19 04:45 | PTCARENOTE ---
assessment remains unchanged. VSS. SR on tele-monitor. POX 96-98% on [address] drainage WNL. U/O >0.5ml/kg/hr. AM labs collected and sent. EKG performed. DIRECTOR INTELLIGENCE ANALYSIS PROGRAMS removed brachial a-line.
[2023-10-19] MEDS: TYLENOL PO ×2 (05:23→21:23)
--- NOTE | 2023-10-19 06:00 | PTCARENOTE ---
hanson removed at 0600. DTV at 1200.
[2023-10-19 06:21] LABS: Glucose - Point of Care 100 mg/dl (70-99)
[2023-10-19] MEDS: ROXICODONE 2.5 MG PO (06:45)
--- NOTE | 2023-10-19 07:58 | W.PN.ANS.POP ---
Anesthesia Post Operative
- Anesthesia Post Op Note
Vital Signs Stable-See Nursing Note: Yes
Airway Patent: Yes
Adequate Pain Control: Yes
Change in Mental Status: No
Current Postoperative Nausea & Vomiting: No
Anesthesia Complications: No
General Anesthetic Recall: No
Unplanned Admission: No
Post Op Hydration Adequate: Yes
[2023-10-19 07:59] LABS: Glucose - Point of Care 100 mg/dl (70-99)
[2023-10-19] MEDS: PLAVIX 75 MG PO (08:17)
[2023-10-19] MEDS: LASIX 40 MG IV (08:17)
[2023-10-19] MEDS: PACERONE 200 MG PO ×3 (08:17→21:23)
[2023-10-19] MEDS: NEURONTIN 100 MG PO ×3 (08:17→21:23)
[2023-10-19] MEDS: MAGNESIUM OXIDE 500 MG PO (08:18)
[2023-10-19] MEDS: PROTONIX 40 MG PO (08:18)
[2023-10-19] MEDS: LOPRESSOR 12.5 MG PO ×2 (08:18→19:35)
[2023-10-19] MEDS: LOW STRENGTH ASPIRIN 81 MG PO (08:18)
[2023-10-19] MEDS: NOVOLOG FLEXPEN 4 UNITS SC ×3 (08:18→17:29)
[2023-10-19] MEDS: LEXAPRO 20 MG PO (08:18)
[2023-10-19] MEDS: SENOKOT-S 1 TABLET PO ×2 (08:19→19:36)
[2023-10-19] MEDS: ANCEF 5 IV ×2 (08:19→16:02)
[2023-10-19] MEDS: BACTROBAN 2% OINTMENT 1 APPLIC NASAL ×2 (08:19→19:35)
[2023-10-19] MEDS: LIDOCAINE 4% PATCH 1 PATCH TOPICAL (08:19)
--- NOTE | 2023-10-19 09:19 | PTCARENOTE ---
assumed care of pt from previous shift RN, sinus rhythm on tele w HR 80's, BP 131/97, + peripheral pulses, +1 edema to bilateral lower extremities. Lungs diminished, pox 98% on RA. +bs, tolerating clear liquids, voids clear yellow. Right IJ cordis w
KVO and insulin infusing, PIV flushes easily. Sternal aquacell dressing intact, HUGH wrap removed from right leg, surgical sites intact, CT x4 w minimal amount of drainage. Plan of care reviewed w the pt and questions encouraged.
--- NOTE | 2023-10-19 09:43 | W.PN.CARDCBS ---
Today's Communication / Plan
-
PLAN:
-Rhythm stable. Continue to monitor blood pressure
-Increase mobilization
-Monitor blood pressures
Impression / Plan
-
PCP: Dr. Thais Smith
Cardiology: ATC
Impression:
-Multivessel LM/LAD/LCX CAD by cath at [facility] 10/17/23 s/p CABG GUNTER-LAD and SVG-OM on 10/18/23
-Transferred from [facility] to for CT surgery eval 10/17/23
-Admitted to [facility] with chest pain 10/14/23
-RA
-HTN
-Hyperlipidemia
Cardiac cath 10/09/2023: [facility] study, obstructive/critical disease in the circumflex, ostial LAD with significant left main involvement
Echo 10/17/23: [facility] study, EF 55%, normal RV size and function, no evidence of AAS, moderate MS with mean gradient 3 mmHg, interatrial septal aneurysm with evidence of PFO by color-flow Doppler
Plan:
-Patient extubated and sitting in chair this am looking good.
-ECG reviewed
-A little hypotensive last night and mildly hypertensive today: On Toprol XL 12.5 mg daily. Will follow
-Continue aspirin 81 mg daily and clopidogrel
Progress Note - Group Care Worker
Subjective
Date of Service: October 19, 2023
Tired. Sitting in chair this am 'learning how to cough'
Objective
Labs:
10/19/23 03:52
10/19/23 03:52
Labs
Hgb 12.3 g/dL (12.0-16.0) 10/19/23 03:52
Hct 35.4 % (37.0-47.0) L 10/19/23 03:52
Plt Count 175 10^3/uL (130-400) 10/19/23 03:52
PT 17.6 Sec (11.4-14.6) H 10/18/23 19:09
INR 1.46 10/18/23 19:09
APTT 29.5 Sec (23.4-35.0) 10/18/23 19:09
Sodium 143 mmol/L (135-145) 10/19/23 03:52
Potassium 4.3 mmol/L (3.5-5.1) 10/19/23 03:52
BUN 18 mg/dl (7-17) H 10/19/23 03:52
Creatinine 0.5 mg/dL (0.6-1.0) L 10/19/23 03:52
Glucose 115 mg/dl (70-99) H 10/19/23 03:52
Vital Signs and I&O:
Vital Signs
Temp Pulse Resp BP Pulse Ox
98.9 F 87 16 131/97 98
10/19/23 07:56 10/19/23 08:00 10/19/23 07:56 10/19/23 07:56 10/19/23 09:31
Vital Signs
Temp Pulse Resp BP Pulse Ox
98.9 F 87 16 131/97 98
10/19/23 07:56 10/19/23 08:00 10/19/23 07:56 10/19/23 07:56 10/19/23 09:31
Intake & Output
10/16/23 10/17/23 10/18/23 10/19/23
23:59 23:59 23:59 23:59
Intake Total 510 / 510 367.5 / 397.3 263.7 / 263.7
Output Total 475 / 475 1320 / 1390 880 / 880
Balance 35 / 35 -952.5 / -992.7 -616.3 / -616.3
Physical Exam
Physical Exam
Gen: Awake, alert, oriented
HEENT: NC/AT, sclera anicteric
Lungs: Diminished breath sounds at bases to mid lung field. Chest tubes in place
CV: RRR
Ext: No edema
[2023-10-19 10:13] LABS: Glucose - Point of Care 164 mg/dl (70-99)
[2023-10-19 11:57] LABS: Glucose - Point of Care 101 mg/dl (70-99)
--- NOTE | 2023-10-19 12:45 | PTCARENOTE ---
sinus rhythm maintained on tele, pt tolerated lunch and worked w cardiac rehab. Medicated for pain and assisted from chair to bed for afternoon nap.
[2023-10-19] MEDS: TYLENOL 1000 MG PO (12:48)
[2023-10-19 13:58] LABS: Glucose - Point of Care 133 mg/dl (70-99)
--- NOTE | 2023-10-19 14:03 | W.PN.INTV ---
Today's Communication / Plan
Recommendations
Up OOB as tolerated
Encourage IS
BG 140-180
SpO2 goal >94%
PT/OT
Pt now being transferred to CVICU-telemetry status. Geoscience Professor/Pulmonary service will now sign off. Please call back with any respiratory complaints. Thank you for allowing us to be involved in the care of this patient.
Assessment
-
Assessment: 68-year-old female known tobacco smoker with a wood stove at home who presents with SOB, chest pressure and dizziness while driving. She was at the library and left when her symptoms developed, and went to a [facility] pharmacy that she gets
her medications filled at and notified the staff there her symptoms. Due to concern for a heart attack, 4 baby aspirin's were administered and EMS was notified who brought her to [facility]. Reportedly, echo showed EF of 57%. Cardiac cath done on
10/09/2023 showed high-grade LAD and circumflex disease with RCA disease as well (60%), she was transferred here [place] for surgical evaluation for CABG. Cardiothoracic surgery was consulted who believes patient would benefit from surgical
coronary revascularization. She is tentatively scheduled for surgery tomorrow. Pulmonary/critical care services consulted for further recommendations/preoperative management.
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
Impression:
#Multivessel CAD with acute NSTEMI diagnosed at outside hospital ([facility]) s/p CABG x2 - OR date: 10/18/2023
#Leukocytosis - likely reactive due to above surgery
#Wood stove exposure at home
#History of RA
#Obesity (BMI: 36.6)
#Mild medial LLL and RLL bronchiectasis
Plan:
Post operative management per CT surgery
CT surgery managing chest tubes
Maintain MAP >65
Replete K >4, Mg>2
prn nebulized bronchodilators
Pain control
PT/OT
Monitor hemoglobin & transfuse to keep Hb>7g/dL
Monitor blood sugar with goal BG 140-180
Trend WBC and hold off on ABx; if pt spikes fever then start broad spectrum Abx after solis-Cx
Incentive spirometer encouraged
DVT prophylaxis
Pt now being transferred to CVICU-telemetry status. Geoscience Professor/Pulmonary service will now sign off. Please call back with any respiratory complaints. Thank you for allowing us to be involved in the care of this patient.
Total time spent today was 50 minutes for this encounter. Time includes reviewing laboratory test/imaging results, reviewing pertinent medical records, obtaining and reviewing medical history, performing an appropriate exam, ordering medications,
tests and procedures. Time also includes documentation of this encounter, coordinating patient care and communicating with other healthcare professionals. Total time does not include separately billed tests performed on this date of service.
Data:
CT Chest 10-17-2023:
1. No acute pulmonary process. Mild changes of pulmonary scarring as above with small area of cylindrical bronchiectatic change in the paramediastinal right lower lobe.
2. Coronary and aortic atherosclerosis with severe coronary artery calcification. At least moderate aortic valve calcification.
CXR 10-19-2023: Stable postoperative changes with interval removal of endotracheal tube
CXR 10-17-2023: Hypoaerated lungs without consolidation.
Subjective Dataa
Subjective Data
Date of Service:
Date of Service: October 19, 2023
Chief Complaint: Geoscience Professor Follow Up and Pulmonary Follow Up
Subjective:
Seen this afternoon. Sitting in chair in NAD. Denies SOB. HR 79. On room air breathing comfortably. Insulin gtt at 0.8units/hr. She has R+L pleural chest tubes and mediastinal chest tubes x2. She denies SANTIAGO, abd pain, N/V/f/c.
Review of Systems
General: Other (negative unless mentioned above)
Objective Data
Data Reviewed
Vital Signs / I&O / Oxygen:
Vital Signs
Temp Pulse Resp BP Pulse Ox
98.8 F 76 16 116/69 96
10/19/23 12:31 10/19/23 13:35 10/19/23 12:31 10/19/23 13:35 10/19/23 12:31
Intake and Output
10/18/23 10/19/23 10/20/23
06:59 06:59 06:59
Intake Total 582 / 582 447.9 / 447.9 233.9 / 233.9
Output Total 975 / 975 1400 / 1400 630 / 630
Balance -393 / -393 -952.1 / -952.1 -396.1 / -396.1
SaO2 [CPAP/PSV] 98
SaO2 [SIMV] 98
SaO2 96
Nasal Cannula flow liters per 2
minute
Physical Exam
General: Respiratory Distress (negative) and Comfortable
HEENT: Normocephalic and Anicteric
Cardiovascular: S1-S2 and Peripheral Edema (negative)
Respiratory: Clear, Wheeze (negative), Crackles (negative), Rhonchi (negative) and Non-Labored Respirations
GI: Soft, Non Distended and Non Tender
Neurology: AO x 3 and Tremors (negative)
Skin: Warm and Dry
Labs/Micro/Reports
Lab Data
10/19/23 03:52
10/19/23 03:52
Laboratory Results
10/18/23 10/18/23 10/18/23
19:09 19:15 22:48
PT 17.6 H
INR 1.46
APTT 29.5
pH 7.33 L 7.37
pCO2 40 H 37 H
pO2 206 H 191 H
HCO3 21.1 21.4
O2 Delivery Level Not Reportable
[2023-10-19 16:09] LABS: Glucose - Point of Care 95 mg/dl (70-99)
--- NOTE | 2023-10-19 16:14 | PTCARENOTE ---
VSS, sinus rhythm maintained on tele. Minimal amount of drainage from CTs. Pain well controlled.
[2023-10-19] MEDS: PRAVACHOL 80 MG PO (17:23)
[2023-10-19] MEDS: SINGULAIR 10 MG PO (17:24)
[2023-10-19] MEDS: NSS IV (17:24)
[2023-10-19 17:30] LABS: Glucose - Point of Care 102 mg/dl (70-99)
--- NOTE | 2023-10-19 20:00 | PTCARENOTE ---
assumed care of pt from previous RN. pt A&Ox4, resting in chair at time of assessment. pt c/o SANTIAGO, see MAR. SR on tele-monitor, HR 70s. palpable peripheral pulses. trace edema in b/l LE. POX 96% on 1 L NC. CTx4 (mediastinal x2, R & L pleural) to
-20cm wall suction, draining sanguineous drainage. abd s/n, obese, +BS. pt voiding clear, yellow urine in toilet. all surgical sites stable, CDI. R IJ cordis w/ KVO. PIV intact. pt assisted to bathroom and then back to bed by this RN. plan of care
discussed w/ pt, pt in agreement. see worklist for complete nursing assessment, interventions, VS, and I&Os.
[2023-10-19] MEDS: MAGNESIUM OXIDE PO (20:38)
[2023-10-20] VITALS (11 sets, daily range): BP systolic 90–141; BP diastolic 49–86; PULSE 83; O2SAT 95–98; BMI 37.7
--- NOTE | 2023-10-20 | PTCARENOTE ---
assessment remains unchanged. VSS. SR on tele-monitor, HR 70s. POX 98% on [address] drainage WNL. pt assisted to bathroom to void.
[2023-10-20 00:30] LABS: Glucose - Point of Care 111 mg/dl (70-99)
[2023-10-20] MEDS: FLEXERIL 5 MG PO (04:25)
[2023-10-20 04:27] LABS: Hematocrit 31.5 % (37.0-47.0); Hemoglobin 10.9 g/dL (12.0-16.0); Mean Corp Hgb Conc. 34.6 g/dL (33.0-37.0); Mean Corpuscular Hgb 30.5 pg (27.0-31.0); Mean Corpuscular Volume 88.2 fL (81.0-99.0); Mean Platelet Volume 10.1 fL (7.4-10.4); Platelet Count 169 10^3/uL (130-400); Red Blood Cell Count 3.57 10^6/uL (4.20-5.40); Red Cell Dist. Width 15.9 % (11.5-14.5); White Blood Cell Count 12.8 10^3/uL (4.8-10.8)
--- NOTE | 2023-10-20 04:30 | PTCARENOTE ---
VSS. AM labs collected and sent. pain management, see MAR. AM plan discussed w/ pt, pt in agreement.
--- NOTE | 2023-10-20 04:58 | W.PN.CT ---
Addendum entered and electronically signed by Raza Tinoco MD 10/20/23 13:21:
I saw and examined the patient.
The PA's note was reviewed and I agree with the note.
Comment:
POD#2 s/p CABG x 2
Doing well
D/C CTs
Continue current medications
OOB/IS/ambulate
Original Note:
Today's Communication / Plan
-
-pod #2
-no issues overnight
-CT output: 2 meds 45/105, 2 pleur 30/120
-diuresed with 40 iv Lasix on 10/18. Follow daily wt
-follow BMP - pending
-current meds (ASA, Plavix, Lopressor, Amio, Pravachol, Protonix)
-encourage IS, OOB
Assessment / Plan
-
NSTEMI s/p CABG x2 (TIFFANIE to LAD, GSV to OM) by Dr. Tinoco 10/18/23 POD #2
post op LOUISA: LVEF 65-70%, no RWMA, normal valves, mild TR
-MVCAD: 60% distal left main involving the ostial LAD and LCx. 90% ostial LAD 50% calcific ostial and 80% proximal LCx 60% proximal RCA (dominant)
-Aneurysm of intraventricular septum with PFO
-Rheumatoid arthritis
-HLD
-HTN
-migraine
-basal cell cancer of forehead
-obesity
-tobacco abuse
-Acute postop blood loss anemia
-Post op pain
-Acute postop sinus bradycardia, 1st degree AVB - improved
-Acute postop prolonged QTc- improved
-Acute postop atelectasis
Discussed patient care with: Nursing and Care Team
Subjective
Procedure
s/p CABG x2 (TIFFANIE to LAD, GSV to OM)a with Dr. Tinoco on 10/18/23
-
Date of Service: October 20, 2023
Objective Data
-
Lab Results
10/20/23 04:16
PT 17.6 Sec (11.4-14.6) H 10/18/23 19:09
INR 1.46 10/18/23 19:09
APTT 29.5 Sec (23.4-35.0) 10/18/23 19:09
Vital Signs
Vital Signs
Temp Pulse Resp BP Pulse Ox
98.0 F 79 18 109/70 98
10/20/23 04:00 10/20/23 04:22 10/20/23 04:00 10/20/23 04:22 10/20/23 04:00
CT Intake/Output/Weight
10/19/23 10/19/23 10/20/23
06:59 18:59 06:59
Intake Total 369.9 / 447.9 356.5 / 456.5 100 / 456.5
Output Total 1100 / 1400 650 / 725 75 / 725
Balance -730.1 / -952.1 -293.5 / -268.5 25 / -268.5
SaO2: 98
Physical Exam
-
General: Awake and AOx3
Cardiovascular: Regular rate & rhythm, No Murmurs and No Rub
Respiratory: Rales (L base) and Decreased Breath Sounds
Sternum: Stable
Incision: Clean, Dry and Intact
Extremities: Edema +1 (chronic toe swelling with some erythema, no warmth/arthritis)
Abdomen: soft, nontender, nondistended, + bowel sounds
Data Reviewed
-
Lab Results: Results Reviewed
Medications: Active Meds Reviewed
Chest X-Ray: Report Reviewed and Image Reviewed
ECG: Report Reviewed and Image Reviewed
[2023-10-20 05:10] LABS: Blood Urea Nitrogen 24 mg/dl (7-17); Calcium 8.2 mg/dl (8.4-10.2); Carbon Dioxide 27 mmol/L (22-30); Chloride 106 mmol/L (98-107); Estimated Creatinine Clearance 78 ml/min; Glucose 118 mg/dl (70-99); Magnesium 2.4 mg/dl (1.6-2.3); Potassium 3.7 mmol/L (3.5-5.1); Sodium 136 mmol/L (135-145); eGFR > 60.00
[2023-10-20] MEDS: KCL 40 MEQ PO (06:46)
[2023-10-20] MEDS: TYLENOL 1000 MG PO ×3 (06:46→22:08)
--- NOTE | 2023-10-20 08:00 | PTCARENOTE ---
Received pt from retail shift leader RN; pt AAOX3 and resting comfortably in chair; NSR on monitor and VSS; RIJ Cordis and PIV x1 all patent; Lungs diminished; CT x4 to -20 wall suction no air leak and no crepitus noted; positive bowel sounds; pt voiding
clear yellow urine; palpable pulses throughout; +1 generalized edema noted; all surgical sites C/D/I; see nursing documentation for further details.
[2023-10-20] MEDS: SENOKOT-S 1 TABLET PO ×2 (08:15→20:37)
[2023-10-20] MEDS: LEXAPRO 20 MG PO (08:15)
[2023-10-20] MEDS: PLAVIX 75 MG PO (08:15)
[2023-10-20] MEDS: LIDOCAINE 4% PATCH 1 PATCH TOPICAL (08:15)
[2023-10-20] MEDS: PROTONIX 40 MG PO (08:15)
[2023-10-20] MEDS: LOW STRENGTH ASPIRIN 81 MG PO (08:15)
[2023-10-20] MEDS: BACTROBAN 2% OINTMENT 1 APPLIC NASAL ×2 (08:16→20:37)
[2023-10-20] MEDS: NEURONTIN 100 MG PO ×3 (08:16→22:07)
[2023-10-20] MEDS: MAGNESIUM OXIDE PO (08:16)
--- NOTE | 2023-10-20 09:29 | PTCARENOTE ---
Right and Left Pleural Chest tubes and Mediastinal X2 chest tubes removed per CVNP order.
--- NOTE | 2023-10-20 09:59 | W.PN.CARDCBS ---
Today's Communication / Plan
-
Plan:
-Chest tubes removed.
-ECG reviewed
-BP a little soft : Metoprolol 12.5 mg bid
-Continue aspirin 81 mg daily and clopidogrel
Impression / Plan
-
PCP: Dr. Thais Smith
Cardiology: ATC
Impression:
-Multivessel LM/LAD/LCX CAD by cath at [facility] 10/17/23 s/p CABG GUNTER-LAD and SVG-OM on 10/18/23
-Transferred from [facility] to for CT surgery eval 10/17/23
-Admitted to [facility] with chest pain 10/14/23
-RA
-HTN
-Hyperlipidemia
Cardiac cath 10/09/2023: [facility] study, obstructive/critical disease in the circumflex, ostial LAD with significant left main involvement
Echo 10/17/23: [facility] study, EF 55%, normal RV size and function, no evidence of AAS, moderate MS with mean gradient 3 mmHg, interatrial septal aneurysm with evidence of PFO by color-flow Doppler
Plan:
-Chest tubes removed.
-ECG reviewed
-BP a little soft : Metoprolol 12.5 mg bid
-Continue aspirin 81 mg daily and clopidogrel
Progress Note - Borderer
Subjective
Date of Service: October 20, 2023
A little sore. 'They just took the tubes out'
Objective
Labs:
10/20/23 04:16
10/20/23 04:16
Labs
Hgb 10.9 g/dL (12.0-16.0) L 10/20/23 04:16
Hct 31.5 % (37.0-47.0) L 10/20/23 04:16
Plt Count 169 10^3/uL (130-400) 10/20/23 04:16
PT 17.6 Sec (11.4-14.6) H 10/18/23 19:09
INR 1.46 10/18/23 19:09
APTT 29.5 Sec (23.4-35.0) 10/18/23 19:09
Sodium 136 mmol/L (135-145) 10/20/23 04:16
Potassium 3.7 mmol/L (3.5-5.1) 10/20/23 04:16
BUN 24 mg/dl (7-17) H 10/20/23 04:16
Creatinine 0.7 mg/dL (0.6-1.0) 10/20/23 04:16
Glucose 118 mg/dl (70-99) H 10/20/23 04:16
Vital Signs and I&O:
Vital Signs
Temp Pulse Resp BP Pulse Ox
97.6 F 86 20 90/49 98
10/20/23 08:00 10/20/23 08:00 10/20/23 08:00 10/20/23 07:34 10/20/23 09:48
Vital Signs
Temp Pulse Resp BP Pulse Ox
97.6 F 86 20 90/49 98
10/20/23 08:00 10/20/23 08:00 10/20/23 08:00 10/20/23 07:34 10/20/23 09:48
Intake & Output
10/17/23 10/18/23 10/19/23 10/20/23
23:59 23:59 23:59 23:59
Intake Total 510 / 510 367.5 / 397.3 528.9 / 568.9 120 / 120
Output Total 475 / 475 1320 / 1390 1230 / 1290 135 / 135
Balance 35 / 35 -952.5 / -992.7 -701.1 / -721.1 -15 / -15
Physical Exam
Physical Exam
Gen: Resting but awakes. She is alert and oriented
HEENT: NC/AT, sclera anicteric
Lungs: clear anteriorly
CV: RRR
Ext: No edema
[2023-10-20] MEDS: LOPRESSOR 12.5 MG PO ×2 (10:27→20:39)
[2023-10-20] MEDS: PACERONE 200 MG PO ×3 (10:27→22:08)
--- NOTE | 2023-10-20 13:01 | PTCARENOTE ---
NSR on monitor and VSS; assessment unchanged.
--- NOTE | 2023-10-20 14:52 | CM ---
CM following for DC planning needs.
Met w/ patient, spouse at bedside.
Reviewed post-op MD appointments, Cardiac Rehab and visit from CT Transitional Care RN.
Pt. is hopeful for DC over w/e and anticipates no needs.
Plan is for home w/ [facility] Transitional [facility] RN.
CM to follow.
[2023-10-20] MEDS: PRAVACHOL 80 MG PO (18:23)
[2023-10-20] MEDS: SINGULAIR 10 MG PO (18:23)
--- NOTE | 2023-10-20 20:30 | PTCARENOTE ---
pt received from previous shift recent transfer to ivu. oob in chair with feet elevated. pt pleasant and cooperative. states she is feeling very well. denies pain or discomfort at this time. mid sternal incision with aquacell dressing intact. chest
tube site dressing dry and intact. right leg incision open to air and tender to touch as per pt.pacer wires insulated. right IJ cordis intact with nss infusing at 10 ml as ordered.pt using IS to 1000. pt with occasional productive cough for clear/
louis thick mucus. no acute distress.
[2023-10-20] MEDS: MAGNESIUM OXIDE 500 MG PO (20:38)
[2023-10-21] VITALS (9 sets, daily range): BP systolic 104–136; BP diastolic 62–87; PULSE 72; O2SAT 95–96; BMI 37.6
--- NOTE | 2023-10-21 04:40 | W.PN.CT ---
Today's Communication / Plan
-
-pod #3
-doing well, no issues overnight
-weaned off O2 - pOx 97% on RA
-IS 1000- continue to encourage
-soft BP earlier - improved
-follow Qt (on Lexapro and Amio)
-continue current meds (ASA, Plavix, Lopressor, Amio, Pravachol, Protonix, Lexapro)
-encourage OOB, ambulate
Assessment / Plan
-
NSTEMI s/p CABG x2 (TIFFANIE to LAD, GSV to OM) by Dr. Tinoco 10/18/23 POD #3
post op LOUISA: LVEF 65-70%, no RWMA, normal valves, mild TR
-MVCAD: 60% distal left main involving the ostial LAD and LCx. 90% ostial LAD 50% calcific ostial and 80% proximal LCx 60% proximal RCA (dominant)
-Aneurysm of intraventricular septum with PFO
-Rheumatoid arthritis
-HLD
-HTN
-migraine
-basal cell cancer of forehead
-obesity
-tobacco abuse
-Acute postop blood loss anemia
-Post op pain
-Acute postop sinus bradycardia, 1st degree AVB - improved
-Acute postop prolonged QTc- improved
-Acute postop atelectasis
Discussed patient care with: Nursing and Care Team
Subjective
Procedure
s/p CABG x2 (TIFFANIE to LAD, GSV to OM)a with Dr. Tinoco on 10/18/23
-
Date of Service: October 21, 2023
Objective Data
-
PT 17.6 Sec (11.4-14.6) H 10/18/23 19:09
INR 1.46 10/18/23 19:09
APTT 29.5 Sec (23.4-35.0) 10/18/23 19:09
Vital Signs
Vital Signs
Temp Pulse Resp BP Pulse Ox
98.0 F 68 16 122/86 97
10/20/23 23:25 10/20/23 23:00 10/20/23 23:25 10/20/23 22:08 10/21/23 00:26
CT Intake/Output/Weight
10/20/23 10/20/23 10/21/23
06:59 18:59 06:59
Intake Total 100 / 456.5 80 / 80
Output Total 75 / 725 60 / 60
Balance 25 / -268.5 /
SaO2: 97
Physical Exam
-
General: Awake and AOx3
Cardiovascular: Regular rate & rhythm, No Murmurs and No Rub
Respiratory: Decreased Breath Sounds
Sternum: Stable
Incision: Clean, Dry and Intact
Extremities: Other (trace edema b/l)
Abdomen: soft, nontender, + bowel sounds, nondistended
Data Reviewed
-
Lab Results: Results Reviewed
Medications: Active Meds Reviewed
Chest X-Ray: Report Reviewed and Image Reviewed
ECG: Report Reviewed and Image Reviewed
[2023-10-21] MEDS: NSS 500 IV (05:31)
[2023-10-21] MEDS: TYLENOL 1000 MG PO ×3 (05:32→22:17)
[2023-10-21 05:34] LABS: Hematocrit 30.3 % (37.0-47.0); Hemoglobin 10.7 g/dL (12.0-16.0); Mean Corp Hgb Conc. 35.3 g/dL (33.0-37.0); Mean Corpuscular Hgb 31.2 pg (27.0-31.0); Mean Corpuscular Volume 88.3 fL (81.0-99.0); Mean Platelet Volume 9.7 fL (7.4-10.4); Platelet Count 173 10^3/uL (130-400); Red Blood Cell Count 3.43 10^6/uL (4.20-5.40); White Blood Cell Count 9.4 10^3/uL (4.8-10.8)
[2023-10-21 06:00] LABS: Blood Urea Nitrogen 19 mg/dl (7-17); Calcium 8.2 mg/dl (8.4-10.2); Carbon Dioxide 28 mmol/L (22-30); Chloride 107 mmol/L (98-107); Estimated Creatinine Clearance 92 ml/min; Glucose 102 mg/dl (70-99); Magnesium 2.4 mg/dl (1.6-2.3); Sodium 138 mmol/L (135-145); eGFR > 60.00
[2023-10-21] MEDS: LOW STRENGTH ASPIRIN 81 MG PO (08:12)
[2023-10-21] MEDS: PROTONIX 40 MG PO (08:12)
[2023-10-21] MEDS: PACERONE 200 MG PO ×3 (08:12→22:16)
[2023-10-21] MEDS: MAGNESIUM OXIDE 500 MG PO ×2 (08:12→20:12)
[2023-10-21] MEDS: LOPRESSOR 12.5 MG PO ×2 (08:12→20:12)
[2023-10-21] MEDS: PLAVIX 75 MG PO (08:12)
[2023-10-21] MEDS: LEXAPRO 20 MG PO (08:12)
[2023-10-21] MEDS: NEURONTIN 100 MG PO ×3 (08:12→22:17)
[2023-10-21] MEDS: BACTROBAN 2% OINTMENT 1 APPLIC NASAL ×2 (08:13→20:15)
[2023-10-21] MEDS: LIDOCAINE 4% PATCH 1 PATCH TOPICAL (08:13)
[2023-10-21] MEDS: SENOKOT-S 1 TABLET PO ×2 (08:13→20:12)
--- NOTE | 2023-10-21 08:21 | W.PN.CARDCBS ---
Addendum entered and electronically signed by Adolfo Palm MD 10/21/23 09:34:
I saw and examined the patient.
The Teacher Visually Impaired's note was reviewed and I agree with the note.
Comment:
GEN: No distress, awake, Ox3
HEENT: supple, anicteric, mmm
LUNGS: CTA, no wheezes/rales
CV: Reg, S1/S2, 1/6 syst LSB, no rub
ABD: soft, BS+, NT/ND
EXT: No edema
NEURO: Gross non-focal
SKIN: sternotomy
Plan:
Continues to do well status post CABG. Remains in sinus rhythm. Continue Toprol and amiodarone.
Hemoglobin at 10 and creatinine normal
Continue aspirin and Plavix
Original Note:
Today's Communication / Plan
-
continue post op care
Impression / Plan
-
PCP: Dr. Thais Smith
Cardiology: ATC
Impression:
-Multivessel LM/LAD/LCX CAD by cath at [facility] 10/17/23 s/p CABG GUNTER-LAD and SVG-OM on 10/18/23
-Transferred from [facility] to for CT surgery eval 10/17/23
-Admitted to [facility] with chest pain 10/14/23
-RA
-HTN
-Hyperlipidemia
Cardiac cath 10/09/2023: [facility] study, obstructive/critical disease in the circumflex, ostial LAD with significant left main involvement
Echo 10/17/23: [facility] study, EF 55%, normal RV size and function, no evidence of AAS, moderate MS with mean gradient 3 mmHg, interatrial septal aneurysm with evidence of PFO by color-flow Doppler
Plan:
-She is POD #3 s/p CABG x 2 (GUNTER to LAD and SVG to OM) 10/18/2023.
-Doing well overnight. No complaints.
-Ambulating without any exertional complaints.
-EKG this a.m. with QTc stable at 462 ms. Remains in sinus rhythm on review of telemetry. Continues on amiodarone.
-Blood pressures stable. Continue current medications.
-Continue aspirin and Plavix.
-Continue postop care
Progress Note - Recreation Officer
Subjective
Date of Service: October 21, 2023
Feels well. No chest pain or dizziness. Breathing improving.
Objective
Labs:
10/21/23 05:26
10/21/23 05:26
Labs
Hgb 10.7 g/dL (12.0-16.0) L 10/21/23 05:26
Hct 30.3 % (37.0-47.0) L 10/21/23 05:26
Plt Count 173 10^3/uL (130-400) 10/21/23 05:26
PT 17.6 Sec (11.4-14.6) H 10/18/23 19:09
INR 1.46 10/18/23 19:09
APTT 29.5 Sec (23.4-35.0) 10/18/23 19:09
Sodium 138 mmol/L (135-145) 10/21/23 05:26
Potassium 4.0 mmol/L (3.5-5.1) 10/21/23 05:26
BUN 19 mg/dl (7-17) H 10/21/23 05:26
Creatinine 0.6 mg/dL (0.6-1.0) 10/21/23 05:26
Glucose 102 mg/dl (70-99) H 10/21/23 05:26
Vital Signs and I&O:
Vital Signs
Temp Pulse Resp BP Pulse Ox
98.3 F 70 20 110/64 96
10/21/23 07:28 10/21/23 08:12 10/21/23 07:28 10/21/23 08:12 10/21/23 07:28
Vital Signs
Temp Pulse Resp BP Pulse Ox
98.3 F 70 20 110/64 96
10/21/23 07:28 10/21/23 08:12 10/21/23 07:28 10/21/23 08:12 10/21/23 07:28
Intake & Output
10/19/23 10/20/23 10/21/23 10/22/23
06:59 06:59 06:59 06:59
Intake Total 447.9 / 447.9 456.5 / 456.5 440 / 440
Output Total 1400 / 1400 725 / 725 60 / 60
Balance -952.1 / -952.1 -268.5 / -268.5 380 / 380
Physical Exam
Physical Exam
GEN: No distress, awake, alert, oriented x3
HEENT: supple, anicteric, mmm
LUNGS: CTA, no wheezes/rales
CV: Reg, S1/S2, no murmur
EXT: No clubbing, cyanosis, or edema
NEURO: Gross non-focal
SKIN: Warm, dry, no rash
[2023-10-21] MEDS: PRAVACHOL 80 MG PO (17:19)
[2023-10-21] MEDS: SINGULAIR 10 MG PO (17:19)
[2023-10-21] MEDS: NSS IV (17:25)
[2023-10-21] MEDS: TOPAMAX 25 MG PO (20:16)
--- NOTE | 2023-10-22 01:25 | PTCARENOTE ---
OOB in chair all evening. RIJ intact with nss infusing to KVO. Sternal precautions maintained. She had a large BM at the start of the shift. Compression bra was on until bedtime. Looking forward to possible discharge in the AM. Sleeping at
intervals.
[2023-10-22 03:18] VITALS: BP 123/75
[2023-10-22 03:28] VITALS: BMI 37.6
[2023-10-22 04:35] LABS: Hematocrit 32.8 % (37.0-47.0); Hemoglobin 10.9 g/dL (12.0-16.0); Mean Corp Hgb Conc. 33.2 g/dL (33.0-37.0); Mean Corpuscular Hgb 30.4 pg (27.0-31.0); Mean Corpuscular Volume 91.6 fL (81.0-99.0); Mean Platelet Volume 11.3 fL (7.4-10.4); Platelet Count 143 10^3/uL (130-400); Red Blood Cell Count 3.58 10^6/uL (4.20-5.40); Red Cell Dist. Width 15.9 % (11.5-14.5); White Blood Cell Count 9.3 10^3/uL (4.8-10.8)
[2023-10-22 05:04] LABS: Blood Urea Nitrogen 16 mg/dl (7-17); Calcium 8.7 mg/dl (8.4-10.2); Carbon Dioxide 26 mmol/L (22-30); Chloride 108 mmol/L (98-107); Estimated Creatinine Clearance 92 ml/min; Glucose 105 mg/dl (70-99); Magnesium 2.3 mg/dl (1.6-2.3); Potassium 3.9 mmol/L (3.5-5.1); Sodium 139 mmol/L (135-145); eGFR > 60.00
[2023-10-22 06:00] VITALS: BMI 37.6
--- NOTE | 2023-10-22 06:03 | W.PN.CT ---
Today's Communication / Plan
-
-pod #4
-doing well, no issues overnight
-follow Qt (on Lexapro and Amio)
-continue current meds (ASA, Plavix, Lopressor, Amio, Pravachol, Protonix, Lexapro)
-encourage OOB, ambulate
-anticipate discharge over next 24 hours.
Assessment / Plan
-
NSTEMI s/p CABG x2 (TIFFANIE to LAD, GSV to OM) by Dr. Tinoco 10/18/23 POD #4
post op LOUISA: LVEF 65-70%, no RWMA, normal valves, mild TR
-MVCAD: 60% distal left main involving the ostial LAD and LCx. 90% ostial LAD 50% calcific ostial and 80% proximal LCx 60% proximal RCA (dominant)
-Aneurysm of intraventricular septum with PFO
-Rheumatoid arthritis
-HLD
-HTN
-migraine
-basal cell cancer of forehead
-obesity
-tobacco abuse
-Acute postop blood loss anemia
-Post op pain
-Acute postop sinus bradycardia, 1st degree AVB - improved
-Acute postop prolonged QTc- improved
-Acute postop atelectasis
Subjective
Procedure
s/p CABG x2 (TIFFANIE to LAD, GSV to OM)a with Dr. Tinoco on 10/18/23
-
Date of Service: October 22, 2023
Objective Data
-
Lab Results
10/22/23 03:40
10/22/23 03:40
PT 17.6 Sec (11.4-14.6) H 10/18/23 19:09
INR 1.46 10/18/23 19:09
APTT 29.5 Sec (23.4-35.0) 10/18/23 19:09
Vital Signs
Vital Signs
Temp Pulse Resp BP Pulse Ox
98.3 F 74 18 123/75 98
10/22/23 03:18 10/22/23 03:18 10/22/23 03:20 10/22/23 03:18 10/22/23 03:20
CT Intake/Output/Weight
10/21/23 10/21/23 10/22/23
06:59 18:59 06:59
Intake Total 360 / 440 236 / 236
Balance 360 / 380 236 / 236
SaO2: 98
Physical Exam
-
General: AOx3
Cardiovascular: Regular rate & rhythm
Respiratory: Decreased Breath Sounds
Sternum: Stable
Incision: Clean, Dry and Intact
Extremities: Edema +1
Data Reviewed
-
Lab Results: Results Reviewed
[2023-10-22] MEDS: TYLENOL 1000 MG PO (07:14)
[2023-10-22 08:20] VITALS: BP 135/76
[2023-10-22] MEDS: LIDOCAINE 4% PATCH 1 PATCH TOPICAL (08:22)
[2023-10-22] MEDS: MAGNESIUM OXIDE 500 MG PO (08:24)
[2023-10-22] MEDS: NEURONTIN 100 MG PO (08:25)
[2023-10-22] MEDS: TOPAMAX 25 MG PO (08:25)
[2023-10-22] MEDS: PROTONIX 40 MG PO (08:25)
[2023-10-22] MEDS: PACERONE 200 MG PO (08:25)
[2023-10-22] MEDS: PLAVIX 75 MG PO (08:25)
[2023-10-22] MEDS: LOPRESSOR 12.5 MG PO (08:25)
[2023-10-22] MEDS: LOW STRENGTH ASPIRIN 81 MG PO (08:25)
[2023-10-22] MEDS: SENOKOT-S PO (08:26)
[2023-10-22] MEDS: LEXAPRO 20 MG PO (08:31)
--- NOTE | 2023-10-22 09:17 | W.PN.CARDCBS ---
Today's Communication / Plan
-
doing well s/p CABG
Cont ASA/Plavix
Impression / Plan
-
PCP: Dr. Thais Smith
Cardiology: ATC
Impression:
-Multivessel LM/LAD/LCX CAD by cath at [facility] 10/17/23 s/p CABG GUNTER-LAD and SVG-OM on 10/18/23
-Transferred from [facility] to for CT surgery eval 10/17/23
-Admitted to [facility] with chest pain 10/14/23
-RA
-HTN
-Hyperlipidemia
Cardiac cath 10/09/2023: [facility] study, obstructive/critical disease in the circumflex, ostial LAD with significant left main involvement
Echo 10/17/23: [facility] study, EF 55%, normal RV size and function, no evidence of AAS, moderate MS with mean gradient 3 mmHg, interatrial septal aneurysm with evidence of PFO by color-flow Doppler
Plan:
-She is POD #4 s/p CABG x 2 (GUNTER to LAD and SVG to OM) 10/18/2023.
-Doing well overnight. No complaints.
-Ambulating without any exertional complaints.
-EKG this a.m. with QTc stable at 462 ms. Remains in sinus rhythm on review of telemetry. Continues on amiodarone.
-Blood pressures stable. Continue current medications.
-Continue aspirin and Plavix.
Progress Note - Firewall Administrator
Subjective
Date of Service: October 22, 2023
Feels well. No chest pains or shortness of breath
Objective
Labs:
10/22/23 03:40
10/22/23 03:40
Labs
Hgb 10.9 g/dL (12.0-16.0) L 10/22/23 03:40
Hct 32.8 % (37.0-47.0) L 10/22/23 03:40
Plt Count 143 10^3/uL (130-400) 10/22/23 03:40
PT 17.6 Sec (11.4-14.6) H 10/18/23 19:09
INR 1.46 10/18/23 19:09
APTT 29.5 Sec (23.4-35.0) 10/18/23 19:09
Sodium 139 mmol/L (135-145) 10/22/23 03:40
Potassium 3.9 mmol/L (3.5-5.1) 10/22/23 03:40
BUN 16 mg/dl (7-17) 10/22/23 03:40
Creatinine 0.6 mg/dL (0.6-1.0) 10/22/23 03:40
Glucose 105 mg/dl (70-99) H 10/22/23 03:40
Vital Signs and I&O:
Vital Signs
Temp Pulse Resp BP Pulse Ox
98.3 F 77 18 135/76 98
10/22/23 03:18 10/22/23 08:25 10/22/23 03:20 10/22/23 08:25 10/22/23 06:05
Vital Signs
Temp Pulse Resp BP Pulse Ox
98.3 F 77 18 135/76 98
10/22/23 03:18 10/22/23 08:25 10/22/23 03:20 10/22/23 08:25 10/22/23 06:05
Intake & Output
10/20/23 10/21/23 10/22/23 10/23/23
06:59 06:59 06:59 06:59
Intake Total 456.5 / 456.5 440 / 440 / 236
Output Total 725 / 725 60 / 60
Balance -268.5 / -268.5 380 / 380
Physical Exam
Physical Exam
GEN: No distress, awake, Ox3
HEENT: supple, anicteric, mmm
LUNGS: CTA, no wheezes/rales
CV: Reg, S1/S2, no rub
ABD: soft, BS+, NT/ND
EXT: No edema
NEURO: Gross non-focal
SKIN: sternotomy
[2023-10-22] MEDS: BACTROBAN 2% OINTMENT 1 APPLIC NASAL (10:06)
--- NOTE | 2023-10-22 10:15 | W.DCSUMMARY ---
Discharge Summary
Discharge Data
Date of Admission: 10/17/23
Date of Discharge: 10/22/23
-
Pending Results: No
Hospital Course
Primary care physician: Emiliana Smith
Outpatient store worker: Kleber Alvarado
Inpatient consultants: [facility]
Procedures:
1. Coronary artery bypass grafting
Primary Diagnosis:
1. Non-STEMI
Secondary Diagnoses:
1. multivessel coronary disease
2. Rheumatoid arthritis on methotrexate
3. Hypertension
4. Obesity (BMI 36)
5. Migraine cephalgia
HPI: Beatrice Marx is a 68-year-old [id number]-vajm-[id number] female with chronic rheumatoid arthritis on methotrexate and in usual state of health, was initially admitted to [facility] on 10/14/2023 for complaint of chest pressure,
shortness of breath and dizziness while driving. She pulled into a [facility] pharmacy and was given 4 baby aspirin's and EMS was notified. She ruled in for non-STEMI at [facility]. TTE reported ejection fraction of 57%. Cardiac cath via right
radial artery on 10/17/2023 reported high-grade LAD and circumflex disease, with 60% RCA stenosis. Patient was transferred to [facility] for surgical evaluation for CABG.
Hospital course: Patient was taken to the operating room 10/17 and underwent CABG x 2 with GUNTER to LAD, and SVG to OM with Dr. Raza Tinoco. Postprocedure LOUISA reported an EF of 60-65%. Patient received no intraoperative blood products and
returned to the CVICU on Levophed, insulin, and Precedex. Patient was extubated by 11 PM the day of surgery. Levophed was weaned off during the night and beta-anita, aspirin, and Plavix were initiated. Plavix will continue for 1 year due to
non-STEMI. Patient did NOT have temporary pacing wires placed. 2 mediastinal and right and left pleural chest tubes were removed on postoperative day #2. Predischarge 2 view chest x-ray on postoperative day #4 reported no pleural effusion or
pneumothorax. Patient was given a support bra and encouraged to wear as much as possible to help with sternal healing. Patient is stable for discharge home today.
Home medication changes:
New Meds:
Clopidogrel + Aspirin for NSTEMI
Pantoprozole for GI prophylaxis while on Clopidogrel
Stop:
furosemide and multivitamin
Discharge Plan
-
Patient Disposition: Home (Routine Discharge)
Discharge Diagnosis/Procedures: NSTEMI/CABG
Condition: Good
Diet: Low Cholesterol and Low Sodium
Activity: No strenuous activity
Driving Restrictions: Not until seen by your Dr
Bathing Restrictions: OK to Shower
Other Services: Cardiac Rehab
Specialty Instructions: Weigh Daily- Call MD for wt gain/loss 3 lbs overnight/5 lbs in 1 week
Activity Restrictions/Additional Instructions:
Please call [facility] to set up an appointment to begin Cardiac Rehab
[facility] [address]
[facility] [address]
[phone]
Referrals:
CT Transitional Care Nurse [Outside] (The Cardiothoracic Transitional Care Nurse will call you to set up a visit in 1-2 days.)
[facility] [Outside] (Please call [facility] to schedule first orientation appt following hospital discharge at: [phone].)
Thais Smith DO [Family Provider] -
Raza Tinoco MD [Active] - 11/20/23 1:30 pm
Nils Alvarado MD [Active] - 12/06/23 3:00 pm
Prescriptions:
New
clopidogrel 75 mg Tablet
75 mg PO DAILY Qty: 30 2RF
pantoprazole 40 mg Tablet,Delayed Release (Dr/Ec)
40 mg PO DAILY Qty: 30 1RF
metoprolol tartrate 25 mg Tablet
12.5 mg PO Q12 Qty: 60 1RF
Continued
topiramate 25 mg Tablet
25 mg PO BID
acetaminophen-codeine 300-15 mg Tablet
1 tab PO BID PRN (Reason: pain)
oxycodone-acetaminophen [Percocet] 5-325 mg Tablet
1 tab PO Q6H PRN (Reason: pain)
calcium carbonate 600 mg calcium (1,500 mg) Tablet
600 mg PO BID
pravastatin 80 mg Tablet
80 mg PO DAILY
montelukast [Singulair] 10 mg Tablet
10 mg PO DAILY
aspirin 81 mg Tablet
81 mg PO DAILY
lisinopril 5 mg Tablet
5 mg PO DAILY
fexofenadine-pseudoephedrine [Joaquina-D 12 Hour] 60-120 mg Tablet Extended Release 12 Hr
1 tab PO Q12H PRN (Reason: allergy)
nabumetone 500 mg Tablet
500 mg PO BID
escitalopram oxalate 20 mg Tablet
20 mg PO DAILY
methotrexate sodium 2.5 mg Tablets,Dose Pack
2.5 mg PO QWEEK
omega-3 fatty acids Capsule
1,000 mg PO DAILY
elderberry fruit 200 mg Capsule
200 mg PO DAILY
zolpidem 12.5 mg Tablet,Ext Release Multiphase
12.5 mg PO PRN PRN (Reason: sleep)
cranberry 450 mg Tablet
450 mg PO DAILY
Simponi ARIA 12.5 mg/mL Solution
50 mg IV Q8W
magnesium aspart,citrate,oxide 400 mg magnesium Capsule
400 mg PO DAILY
Neuriva Plus Brain Performance 1.7 mg-400 mcg- 2.4 mcg Capsule
1 cap PO DAILY
Probiotic-Immune 1 billion cell- 45 mg-25 mcg Tablet,Chewable
1 tab PO DAILY
escitalopram oxalate
10 mg PO DAILY
Discontinued
multivitamin Tablet
1 tab PO DAILY
furosemide [Lasix] 20 mg Tablet
20 mg PO DAILY
Discharge Orders:
Discharge Patient (As Directed); Ordered 10/22/23
Ordered By: Bella Ruff
Care Plan Goals
Care Plan Goals:
Problem: Readiness for enhanced knowledge related to diagnosis and treatment plan
Goal: Understand your diagnosis and treatment plan needs, including medications if applicable.
Instructions: Know your diagnosis, underlying causes and treatment plan options, including medications if applicable. Consult with your health care team to learn about your diagnosis and treatment plan, including medications if applicable.
Discharge Date and Time
Print Language: DUTCH
[2023-10-22 12:16] VITALS: BP 101/71
== END 2023-10-22 13:55 | disposition home or self-care (01) | DRG 236 ==
LOC: IVU 11:40
PROVIDERS: Anesthesiology; Clinical Nurse Specialist Acute Care; Nurse Practitioner; ADMITTING PHYSICIAN Internal Medicine Interventional Cardiology; ATTENDING PHYSICIAN Thoracic Surgery (Cardiothoracic Vascular Surgery); CONSULT PHYSICIAN Internal Medicine Critical Care Medicine; CONSULT PHYSICIAN Internal Medicine Interventional Cardiology; FAMILY PHYSICIAN Family Medicine
PROC: 02100ZC Bypass Coronary Artery, One Artery from Thoracic Artery, Open Approach (ICD-10-PCS; 2023-10-18)
PROC: 06BP4ZZ Excision of Right Saphenous Vein, Percutaneous Endoscopic Approach (ICD-10-PCS; 2023-10-18)
PROC: B24BZZ4 Ultrasonography of Heart with Aorta, Transesophageal (ICD-10-PCS; 2023-10-18)
PROC: 5A1221Z Performance of Cardiac Output, Continuous (ICD-10-PCS; 2023-10-18)
PROC: 021009W Bypass Coronary Artery, One Artery from Aorta with Autologous Venous Tissue, Open Approach (ICD-10-PCS; 2023-10-18)
DX: I21.4 Non-ST elevation (NSTEMI) myocardial infarction (principal); Q21.12 Patent foramen ovale; D62 Acute posthemorrhagic anemia; J98.11 Atelectasis; I25.10 Atherosclerotic heart disease of native coronary artery without angina pectoris; M06.9 Rheumatoid arthritis, unspecified; I10 Essential (primary) hypertension; E78.5 Hyperlipidemia, unspecified; E66.9 Obesity, unspecified; J47.9 Bronchiectasis, uncomplicated; G43.909 Migraine, unspecified, not intractable, without status migrainosus; R00.1 Bradycardia, unspecified; F17.210 Nicotine dependence, cigarettes, uncomplicated; Z68.37 Body mass index [BMI] 37.0-37.9, adult; Z79.631 Long term (current) use of antimetabolite agent; Z79.82 Long term (current) use of aspirin; Z79.899 Other long term (current) drug therapy
CPT/HCPCS: 71045; 71046; 71250; 80048; 80053; 80076; 81003; 81015; 82330; 82565; 82805; 82947; 82962; 83036; 83735; 84100; 84132; 84302; 84520; 85014; 85018; 85025; 85027; 85049; 85610; 85730; 86850; 86900; 86901; 86920; 93005; 93312; 93320; 93325; 93880; P9045